=== PATIENT | male | born 1970 | race Caucasian/White ===

== ENCOUNTER 2016-10-02 08:14 | Emergency (ER) | payer MEDICAID, OTHER ==
[~2016-10-02] VITALS: Ht 193 cm; Wt 117.9 kg
[~2016-10-02 08:14] MED LIST: ACET500C PO; AFRI0.052; AFRI0.056; ALPR0.5T3 PO; BACITAB3 PO; BACL-67 PO; BENA25CA2 PO; BUSP10TA PO; BUSP15TA47 PO; CALC-190 PO; CALC1TAB17 PO; CALC500T36 PO; CARA1TAB2 PO; CARB1TAB20 PO; CELE-19 PO; CLAR10CA3 PO; CLON-412 PO; CREO12CA PO; DESYREL PD; DIPH25CA PO; FEXO180T58 PO; FOLI1TAB2 PO; LASI20TA PO; LEXA1TAB2 PO; MAGN400T PO; META800T82 PO; MORP15TA2 PO; MULTCAP PO; NICO14DI3 TD; NICO2GUM34 PO; NICO2GUM62 PO; OMEP40CA2 PO; OXAZ10CA PO; PANCCAP3 PO; PANCCAP4 PO; PRED5TA PO; PRIL40CA PO; ROBA500T PO; ROBA750T4 PO; SENO8.6T2 PO; SUCR1TA PO; TOPA25TA10 PO; TRAZ100T4 PO; TRAZ25TA PO; VALI5TAB PO; VIST25CA PO; VITA100066 PO; VITA100T2 PO; VITA100T60 PO; VITATAB11 PO; VITMTA PO; XANA0.5T PO; ZOFR4SOL PO
[2016-10-02] MEDS ORDERED: LORazepam 2 MG/ML VIAL (J2060) As Ordered ONE (08:48)
--- NOTE | 2016-10-02 09:05 | REP ---
Clinical: Chest pain . Comparison: 03/25/2016 . Findings: The mediastinum and cardiac silhouette are stable and within normal limits for portable technique. The lung correa are clear without acute consolidation, effusion, or pneumothorax. Skeletal structures are intact. Impression: Normal portable chest x-ray Signed by Keagan Campo MD 10/02/2016 08:57 A
[2016-10-02 09:27] LABS: INR 2.15
[2016-10-02] MEDS ORDERED: MORPHINE 2 MG/ML 1ML SYRINGE As Ordered ONE (09:30)
[2016-10-02] MEDS ORDERED: ONDANSETRON 4MG/2ML VIAL (J2405) As Ordered ONE (09:30)
[2016-10-02 09:38] LABS: MEAN CORPUSCULAR HEMOGLOBIN 40.2 pg (27.0-33.0); MEAN CORPUSCULAR HGB CONC 32.1 g/dl (32.0-36.5); MEAN CORPUSCULAR VOLUME 125.4 fl (80.0-96.0); PLATELET COUNT, AUTOMATED 173 k/mm3 (150-450); RED CELL DISTRIBUTION WIDTH 22.4 % (11.5-14.5); WHITE BLOOD COUNT 10.6 K/mm3 (4.0-10.0)
[2016-10-02 09:43] LABS: ALBUMIN 1.9 GM/DL (3.2-5.2); ALKALINE PHOSPHATASE 347 U/L (45-117); ALT/SGPT 175 U/L (12-78); AMYLASE 127 U/L (25-115); ANION GAP 16 MEQ/L (8-16); AST/SGOT 564 U/L (15-37); BLOOD UREA NITROGEN 13 MG/DL (7-18); CALCIUM LEVEL 7.6 MG/DL (8.5-10.1); CARBON DIOXIDE LEVEL 21 MEQ/L (21-32); CHLORIDE LEVEL 92 MEQ/L (98-107); CREATININE FOR GFR 0.91 MG/DL (0.70-1.30); GLOMERULAR FILTRATION RATE > 60.0 (>60); GLUCOSE, FASTING 85 MG/DL (70-105); POTASSIUM SERUM 4.2 MEQ/L (3.5-5.1); SODIUM LEVEL 129 MEQ/L (136-145)
[2016-10-02 09:53] LABS: BILIRUBIN,DIRECT 19.4 MG/DL (0.0-0.2)
[2016-10-02 09:55] LABS: BANDS 1 % (< 11); BASOPHILS 1 % (0-4)
[2016-10-02 09:56] LABS: ANISOCYTOSIS 3+
[2016-10-02 09:57] LABS: TARGET CELLS 1+
[2016-10-02 10:09] LABS: ALBUMIN/GLOBULIN RATIO 0.53 (1.00-1.93); TOTAL PROTEIN 5.5 GM/DL (6.4-8.2)
[2016-10-02 10:10] LABS: BILIRUBIN,TOTAL 24.6 MG/DL (0.2-1.0)
[2016-10-02 10:31] LABS: ERYTHROCYTE SEDIMENTATION RATE 52 mm/hr (0-15)
[2016-10-02] MEDS ORDERED: ISOVUE-370 76% 100ML VIAL (Q9967) As Ordered ONE (11:04)
--- NOTE | 2016-10-02 11:33 | REP ---
Clinical: Jaundice and elevated bilirubin levels. Technique: Real time mosher scale evaluation using curved array transducer. Findings: The liver is increased echogenicity with poor through transmission suggesting fatty infiltration and hepatocellular disease without focal hepatic lesion identified. The biliary system and pancreas are incompletely evaluated due to technical factors and poor through transmission. The gallbladder appears distended with layering sludge/gravel. Mild right upper quadrant and pericholecystic fluid is appreciated and nonspecific. No sonographic Waddell's sign was elicited. The right kidney is normal in reniform shape measuring 12.2 x 6.4 x 5.9 cm without hydronephrosis and includes 2.2 cm simple lower pole cortical cyst. Impression: Fatty infiltration to the liver without focal hepatic lesion identified. Distended gallbladder along with layering sludge/gravel as well as mild ascites and pericholecystic fluid. Biliary system is incompletely evaluated and the common bile duct is poorly identified due to technical factors and poor through transmission from fatty infiltration of the liver. Signed by Keagan Campo MD 10/02/2016 11:24 A
[2016-10-02] MEDS ORDERED: [UNRECOGNIZED DRUG - REMARK] (11:34)
--- NOTE | 2016-10-02 11:56 | REP ---
Clinical: Abdominal pain with jaundice. Technique: Axial contrast enhanced images from the lung bases to the pubic symphysis using 100 ml Isovue 370 intravenous contrast material with coronal and sagittal re-formations. Comparison: 03/25/2016, 02/28/2016. Findings: The liver is diffusely heterogeneous and demonstrates decreased parenchymal attenuation consistent with fatty infiltration and/or hepatocellular disease. No focal hepatic lesion is identified. A moderate amount of ascites noted throughout the abdomen and pelvis is appreciated along with what appears to be increased predominate upper abdominal vasculature suggesting underlying cirrhosis with varices and portosystemic shunting. The spleen is unremarkable. The enteric system demonstrates prior gastric bypass and left lower quadrant small bowel anastomosis. A mild colitis cannot be excluded and may be secondary to surrounding ascites as well as secondary to cirrhosis. There is no evidence for bowel obstruction and no free air to suggest perforation. The gallbladder is mildly distended. The pancreas is unremarkable. The bilateral adrenal glands and kidneys are relatively normal - 2 cm lower pole right renal cyst is unchanged. 2.5 cm fat containing periumbilical hernia is unchanged. Pelvis demonstrates normal bladder and prostate/seminal vesicles. No obvious adenopathy. Abdominal aorta without aneurysm. Surrounding musculoskeletal structures demonstrate age-related changes. Lung bases are clear. Impression: 1. Findings suggest fatty infiltration to the liver and/or hepatocellular disease including findings as described above which may reflect underlying cirrhosis. 2. Moderate ascites. 3. Mild colitis may be secondary to surrounding ascites and cirrhosis. 4. Chronic stable changes including 2 cm right renal cyst and 2.5 cm fat containing periumbilical hernia. Signed by Keagan Campo MD 10/02/2016 11:48 A
--- NOTE | 2016-10-02 13:16 | EDDOCDS ---
Physician Documentation [facility] Name: Rick Cleary Age: 45 yrs Sex: Male : 1970 Arrival Date: 10/02/2016 Time: 08:14 Bed 17 Private MD: Disposition: 10/02 12:31 Critical Care:. ml Disposition: 10/02/16 12:31 Transfer ordered to [facility]. 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 - Reason for transfer: Higher level of care. - Accepting physician is mahesh. - Condition is Unchanged. - Problem is new. - Symptoms are unchanged. Historical: - Allergies: SULFA (SULFONAMIDES); NSAIDS (Gastric Bypass); - Home Meds: 1. Benadryl 25 mg Oral cap 1 cap as needed 2. BuSpar Oral 10 mg three times a day 3. Lexapro 20 mg Oral tab 1 tab once daily 4. omeprazole 40 mg Oral cpDR 1 cap once daily 5. Pancrease 4,000-25,000- 20,000 unit Oral cpDR before meals - PMHx: alcohol abuse; Anxiety; Chronic Pain; Depression; Opioid abuse; Pancreatitis; - PSHx: Gastric Bypass; Tonsillectomy; Adenoidectomy; - Social history: Smoking status: Patient uses tobacco products, light tobacco smoker. No barriers to communication noted, The patient speaks fluent Pashto. - Family history: Not pertinent. - : The pt / caregiver states he / she is not on anticoagulants. Home medication list is obtained from the patient, [place] import data. - Exposure Risk Screening:: None identified. Vital Signs: 08:29 BP 135 / 74; Pulse 103; Resp 24; Temp 97.5(O); Pulse Ox 99% on R/A; Weight 117.93 kg / kcs 259.99 lbs (R); Height 6 ft. 4 in. (193.04 cm) (R); Pain 9/10; 08:51 Pulse 112 MON; Pulse Ox 99% ; jmk 08:52 BP 134 / 66 (auto/); jmk 09:37 BP 108 / 52 (auto/); jmk 09:37 Pulse 106 MON; Pulse Ox 99% ; jmk 09:53 BP 114 / 56 (auto/); jmk 09:53 Pulse 96 MON; Pulse Ox 99% ; jmk 11:58 BP 103 / 49 (auto/); jmk 11:58 Pulse 90 MON; Pulse Ox 100% ; jmk 13:10 BP 156 / 93; Pulse 102; Resp 18; Temp 98.9; Pulse Ox 98% on R/A; jmk 08:29 Body Mass Index 31.65 (117.93 kg, 193.04 cm) kcs MDM: 08:34 ECG WITH READING ER PHYS+CARDIAG ordered. EDMS 08:41 IV Saline Lock ordered. ml 08:41 -Blood Culture (Adults Only), peripheral from different site, or from device/port/PICC ml etc. if present ordered. 08:42 CBC with Diff Ordered. EDMS 08:42 MED Profile Ordered. EDMS 08:42 Liver Profile Ordered. EDMS 08:42 Lipase Ordered. EDMS 08:42 Amylase Ordered. EDMS 08:42 Lactic Acid ([place] tube on ice) Ordered. EDMS 08:42 PT/INR Ordered. EDMS 08:42 PTT Ordered. EDMS 08:42 Ammonia ([place] Tube on Ice, Not [place]) Ordered. EDMS 08:42 CIP Ordered. EDMS 08:42 Troponin Ordered. EDMS 08:42 -Blood Culture Ordered. EDMS 08:42 Chest, 1 View Ordered. EDMS 08:42 NS 0.9% 1000 ml IV at 100 mL/hr continuous ordered. ml 08:43 BED REQUEST+ADM ordered. EDMS 08:44 LORazepam 1 mg IVP once ordered. ml 08:44 Hepatitis Profile Ordered. EDMS 08:50 ERYTHROCYTE SEDIMENTATION RATE Ordered. EDMS 08:50 C REACTIVE PROTEIN QUANTITATIV Ordered. EDMS 08:55 BLOOD CULTURES Ordered. EDMS 09:06 -Blood Culture (Adults Only), peripheral from different site, or from device/port/PICC jmk etc. if present complete. 09:08 Financial registration complete. lg 09:29 Ondansetron 4 mg IVP once ordered. ml 09:29 morphine 2 mg IVP once ordered. ml 09:29 LORazepam 1 mg IVP once ordered. ml 09:40 DIFFERENTIAL NO CHARGE Ordered. EDMS 09:48 CBC with Diff Reviewed. ml 09:48 Lactic Acid ([place] tube on ice) Reviewed. ml 09:48 PT/INR Reviewed. ml 09:48 PTT Reviewed. ml 09:48 Ammonia ([place] Tube on Ice, Not [place]) Reviewed. ml 09:48 Chest, 1 View Reviewed. ml 10:07 CBC with Diff Reviewed. ml 10:07 PLATELET ESTIMATE Reviewed. ml 10:13 MED Profile Reviewed. ml 10:13 Liver Profile Reviewed. ml 10:13 Lipase Reviewed. ml 10:13 Amylase Reviewed. ml 10:13 C REACTIVE PROTEIN QUANTITATIV Reviewed. ml 10:13 CIP Reviewed. ml 10:13 Troponin Reviewed. ml 10:14 Misc. Nursing Order ordered. ml 10:15 CT ABD & PELVIS: IV Contrast Only Ordered. EDMS 10:15 US Gallbladder Ordered. EDMS 10:27 [facility] Payment Agreement was scanned into servtag and attached to record. lg 10:53 Consult PFS/PSA/[employer] Machine Operator ordered. ml 10:53 Consult PFS/PSA/[employer] Machine Operator: Patient's case requires discussion with on-call ml Psychiatrist ordered. 10:53 PSA/PFS to call Nursing Natural Resource Technician, to enter patient data on [place] Safe Act if patient ml involuntarily admitted or transferred for SI or HI ordered. 10:53 Confirm accurate psychiatric medication list and times of last dosage ordered. ml 10:53 Detain Pt Until Medically/PFS Cleared ordered. ml 10:54 Acetaminophen Level Ordered. EDMS 10:54 Drug Eval Toxicology ED Only Ordered. EDMS 10:54 Ethyl Alcohol (ethanol) Ordered. EDMS 10:54 Salicylate Level Ordered. EDMS 10:54 Thyroid Stimulating Hormone Ordered. EDMS 11:44 CBC with Diff Reviewed. ml 11:44 ERYTHROCYTE SEDIMENTATION RATE Reviewed. ml 11:44 Type & Screen Reviewed. ml 11:44 Hepatitis Profile Reviewed. ml 11:44 PLATELET ESTIMATE Reviewed. ml 11:56 US Gallbladder Reviewed. ml 12:26 Acetaminophen Level Reviewed. ml 12:26 Salicylate Level Reviewed. ml 12:26 Ethyl Alcohol (ethanol) Reviewed. ml 12:26 Thyroid Stimulating Hormone Reviewed. ml 12:26 CT ABD & PELVIS: IV Contrast Only Reviewed. ml 13:09 LORazepam 1 mg IVP once ordered. k 13:09 morphine 2 mg IVP once ordered. jose Administered Medications: 09:05 Drug: NS 0.9% 1000 ml Route: IV; Rate: 100 mL/hr; Site: left antecubital; jose 09:06 Drug: LORazepam 1 mg [lorazepam 2 mg/mL injection solution (0.5 mL)] Route: IVP; Site: [facility] left antecubital; 09:25 Follow up: Response: No significant change. [facility] 09:39 Drug: morphine 2 mg Route: IVP; Site: left antecubital; [facility] 10:15 Follow up: Response: Pain is decreased [facility] 09:39 Drug: LORazepam 1 mg [lorazepam 2 mg/mL injection solution (0.5 mL)] Route: IVP; Site: [facility] left antecubital; 09:40 Drug: Ondansetron 4 mg Route: IVP; Site: left antecubital; [facility] 13:10 Drug: LORazepam 1 mg [lorazepam 2 mg/mL injection solution (0.5 mL)] Route: IVP; Site: [facility] left antecubital; 13:10 Drug: morphine 2 mg Route: IVP; Site: left antecubital; [facility] Critical Care Time: 12:31 Critical care time: Bedside Care: 120 minutes, Consultation: 20 minutes, Family ml Intervention: 20 minutes. Total time: 160 minutes Signatures: Dispatcher [employer] EDMS Ulises Son MD MD ml Sleeman, Kacey, RN RN Valentin Best RN RN jmk Ganter, LoriLee, Reg Reg lg The chart was reviewed and I authenticate all verbal orders and agree with the evaluation and treatment provided.Corrections: (The following items were deleted from the chart) 08:50 08:43 C REACTIVE PROTEIN QUANTITATIV+LAB ordered. EDMS EDMS 08:50 08:43 ERYTHROCYTE SEDIMENTATION RATE+LAB ordered. EDMS EDMS 09:44 08:42 TYPE & SCREEN+BBK ordered. EDMS EDMS 10:56 10:54 COMPLETE BLOOD COUNT+LAB ordered. EDMS EDMS Attachments: 10:27 [facility] Payment Agreement lg [email or web address]
--- NOTE | 2016-10-02 13:16 | EDDOCDS ---
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 Says he has had nausea and vomiting too. Adult Sepsis Screening: The patient does not have new or worsening altered mentation. Patient has a respiratory rate of greater than or equal to 22 (1 point). Systolic blood pressure is greater than 100. Patient has a qSOFA score of 1- Negative Sepsis Screen. Suicide/Homicide risk assessment- the patient denies having any suicidal and/or homicidal ideations and does not present with any other emotional, behavioral or mental health complaints. Status: Patient is not a inbound customer service representative or dependent. Transition of care: patient was not received from another setting of care. 08:25 Acuity: AAKASH Level 2 kcs 08:25 Method Of Arrival: Wheelchair kcs 09:58 Red Flag criteria, patient assessed and taken directly to a bed. kcs Triage Assessment: 08:29 General: Appears ill, well developed, well nourished, well groomed, Behavior is kcs cooperative, pleasant. Pain: Location: abdomen Pain currently is 9 out of 10 on a pain scale. HIV screening NA for this visit Offered previously. The patient is triaged at the bedside. See Assessment in Nurses Notes section of ED record. Neurological: Level of Consciousness is awake, alert. Cardiovascular: Rhythm is sinus tachycardia. Respiratory: Airway is patent Respiratory effort is even, labored, Respiratory pattern is regular, symmetrical. GI: Abdomen is distended, Reports bloody stools. Derm: Skin is intact, is healthy with good turgor, Skin is dry, Skin is jaundiced. Historical: - Allergies: SULFA (SULFONAMIDES); NSAIDS (Gastric Bypass); - Home Meds: 1. Benadryl 25 mg Oral cap 1 cap as needed 2. BuSpar Oral 10 mg three times a day 3. Lexapro 20 mg Oral tab 1 tab once daily 4. omeprazole 40 mg Oral cpDR 1 cap once daily 5. Pancrease 4,000-25,000- 20,000 unit Oral cpDR before meals - PMHx: alcohol abuse; Anxiety; Chronic Pain; Depression; Opioid abuse; Pancreatitis; - PSHx: Gastric Bypass; Tonsillectomy; Adenoidectomy; - Social history: Smoking status: Patient uses tobacco products, light tobacco smoker. No barriers to communication noted, The patient speaks fluent Mongolian. - Family history: Not pertinent. - : The pt / caregiver states he / she is not on anticoagulants. Home medication list is obtained from the patient, in[employer] import data. - Exposure Risk Screening:: None identified. Screenin:14 Screening information is obtained from the patient. Fall risk: No risks identified. jmk Fall risk: No risks identified. Assistance ADL's: requires no assistance with activities of daily living. Abuse/DV Screen: The patient / caregiver reports he/she is: not in a situation that causes fear, pain or injury. Nutritional screening: No deficits noted. home support is adequate. 09:26 Advance Directives: Currently, there is no health care proxy. There is no active DNR jmk order. There is no living will. There is no Power of Label Paster. Advance directive information has not previously been placed in an [facility] medical record. Further advance directive information is declined. Assessment: 09:14 General: Appears in no apparent distress, appears generally ill. skin and sclera are jmk both yellow. without resp distress. chest CTA. occasional non congested cough noted. abd soft and non distended but with slight firmness to upper abdomen. Bowel sounds present x 4. diffusely tender with palpation. monitor is sr without ectopy. slightly tremulous. Indicates ETOH on daily basis, with last ingestion was last night.. Cardiovascular: Capillary refill < 3 seconds Clubbing of nail beds is absent Heart tones S1 S2 Edema is absent. Rhythm is regular. Respiratory: Airway is patent Respiratory effort is even, unlabored, Respiratory pattern is regular, Breath sounds are clear bilaterally. GI: Abdomen is flat, non- distended Bowel sounds present X 4 quads. Abd is tender to palpation in right upper quadrant, left upper quadrant, right lower quadrant and left lower quadrant. 09:25 General: Appears reports little change with lorazepam. still very shaky. 9/10 diffuse jmk abdominal pain.. 09:40 General: Appears again medicated for nausea, shakiness and pain.. jmk 10:14 General: Appears resting with eyes closed resp easy and regular when not stimulated. " jmk I have not slept in days". 12:02 General: Appears IV bolus is completed. reports little change in symptoms. steel feel jmk shaky, but no tremors noted. diffuse ABD discomfort is unchanged from arrival. monitor is sr. awaiting admission. 13:10 General: Appears states pain to abdomen is 8/10 and is again feeling shaky. medicated jmk as per order. Monitor is remaining as sr. Overall presentation unchanged from arrival. admitted.. Vital Signs: 08:29 BP 135 / 74; Pulse 103; Resp 24; Temp 97.5(O); Pulse Ox 99% on R/A; Weight 117.93 kg kcs (R); Height 6 ft. 4 in. (193.04 cm) (R); Pain 9/10; 08:51 Pulse 112 MON; Pulse Ox 99% ; jmk 08:52 BP 134 / 66 (auto/); jmk 09:37 BP 108 / 52 (auto/); jmk 09:37 Pulse 106 MON; Pulse Ox 99% ; jmk 09:53 BP 114 / 56 (auto/); jmk 09:53 Pulse 96 MON; Pulse Ox 99% ; jmk 11:58 BP 103 / 49 (auto/); jmk 11:58 Pulse 90 MON; Pulse Ox 100% ; jmk 13:10 BP 156 / 93; Pulse 102; Resp 18; Temp 98.9; Pulse Ox 98% on R/A; jmk 08:29 Body Mass Index 31.65 (117.93 kg, 193.04 cm) [facility] Vitals: 08:29 Log In Time: October 02, 2016 at 08:14. [facility] ED Course: 08:17 Patient visited by Oscar Salinas. mm15 08:17 Patient moved to Waiting mm15 08:24 Shari Martini,RN is Primary Nurse. kcs 08:24 Patient moved to 17 [facility] 08:27 Triage Initiated kcs 08:32 Ulises Son MD is Attending Physician. 08:32 Patient visited by Ulises Son MD. ml 09:06 Troponin Sent. jmk 09:06 CIP Sent. jmk 09:06 Hepatitis Profile Sent. jmk 09:06 ERYTHROCYTE SEDIMENTATION RATE Sent. jmk 09:06 C REACTIVE PROTEIN QUANTITATIV Sent. jmk 09:06 Ammonia (Little Green Tube on Ice, Not Pea Green) Sent. jmk 09:06 -Blood Culture Sent. jmk 09:06 PTT Sent. jmk 09:06 PT/INR Sent. jmk 09:06 Lactic Acid (Rivera tube on ice) Sent. jmk 09:06 Amylase Sent. jmk 09:06 Lipase Sent. jmk 09:07 Liver Profile Sent. jmk 09:07 MED Profile Sent. jmk 09:07 CBC with Diff Sent. jmk 09:14 The patient / caregiver is instructed regarding the plan of care and ED course. Cardiac jmk monitor on. Pulse ox on. 09:14 Inserted saline lock: 20 gauge in left antecubital area. jmk 09:28 Chest, 1 View Returned. EDMS 09:40 Patient visited by Valentin Morel,ARIANNA. jmk 09:42 Notified attending ED physician of Critical lab value. Dr Rivera notified of Lactic Acid kpj of 5.7. 09:51 DIFFERENTIAL NO CHARGE Sent. jmk 10:15 Patient visited by Valentin Morel,ARIANNA. jmk 10:27 [facility] Payment Agreement was scanned into [employer] and attached to record. lg 10:29 Patient moved to Ultrasound br3 10:55 Acetaminophen Level Sent. rs6 10:56 Ethyl Alcohol (ethanol) Sent. rs6 10:56 Salicylate Level Sent. rs6 10:56 Thyroid Stimulating Hormone Sent. rs6 11:12 Patient moved to 17 br3 11:45 US Gallbladder Returned. EDMS 12:09 Patient visited by Lyla Silva PCA. ar3 12:14 CT ABD & PELVIS: IV Contrast Only Returned. EDMS 13:10 No procedures done that require assistance. jose Administered Medications: 09:05 Drug: NS 0.9% 1000 ml Route: IV; Rate: 100 mL/hr; Site: left antecubital; jmk 09:06 Drug: LORazepam 1 mg [lorazepam 2 mg/mL injection solution (0.5 mL)] Route: IVP; Site: [facility] left antecubital; 09:25 Follow up: Response: No significant change. jmk 09:39 Drug: morphine 2 mg Route: IVP; Site: left antecubital; [facility] 10:15 Follow up: Response: Pain is decreased k 09:39 Drug: LORazepam 1 mg [lorazepam 2 mg/mL injection solution (0.5 mL)] Route: IVP; Site: [facility] left antecubital; 09:40 Drug: Ondansetron 4 mg Route: IVP; Site: left antecubital; [facility] 13:10 Drug: LORazepam 1 mg [lorazepam 2 mg/mL injection solution (0.5 mL)] Route: IVP; Site: [facility] left antecubital; 13:10 Drug: morphine 2 mg Route: IVP; Site: left antecubital; [facility] Intake: 13:10 IV: 1000.00ml (NS); Total: 1000.00ml. [facility] Order Results: Lab Order: CBC with Diff; SPEC'M 10/02/16 08:52 Test: WHITE BLOOD COUNT; Value: 10.6; Range: 4.0-10.0; Abnormal: Above high normal; Units: K/mm3; Status: F Test: RED BLOOD COUNT; Value: 2.23; Range: 4.30-6.10; Abnormal: Below low normal; Units: M/mm3; Status: F Test: HEMOGLOBIN; Value: 9.0; Range: 14.0-18.0; Abnormal: Below low normal; Units: g/dl; Status: F Test: HEMATOCRIT; Value: 27.9; Range: 42.0-52.0; Abnormal: Below low normal; Units: %; Status: F Test: MEAN CORPUSCULAR VOLUME; Value: 125.4; Range: 80.0-96.0; Abnormal: Above high normal; Units: fl; Status: F Test: MEAN CORPUSCULAR HEMOGLOBIN; Value: 40.2; Range: 27.0-33.0; Abnormal: Above high normal; Units: pg; Status: F Test: MEAN CORPUSCULAR HGB CONC; Value: 32.1; Range: 32.0-36.5; Units: g/dl; Status: F Test: RED CELL DISTRIBUTION WIDTH; Value: 22.4; Range: 11.5-14.5; Abnormal: Above high normal; Units: %; Status: F Test: PLATELET COUNT, AUTOMATED; Value: 173; Range: 150-450; Units: k/mm3; Status: F Test: NEUTROPHILS; Value: 74; Range: 35-75; Units: %; Status: F Test: BANDS; Value: 1; Range: < 11; Units: %; Status: F Test: LYMPHOCYTES; Value: 7; Range: 16-52; Abnormal: Below low normal; Units: %; Status: F Test: MONOCYTES; Value: 13; Range: 0-8; Abnormal: Above high normal; Units: %; Status: F Test: BASOPHILS; Value: 1; Range: 0-4; Units: %; Status: F Test: METAMYELOCYTES; Value: 1; Range: 0-0; Abnormal: Above high normal; Units: %; Status: F Test: MYELOCYTES; Value: 2; Range: 0-0; Abnormal: Above high normal; Units: %; Status: F Test: ATYPICAL LYMPH; Value: 1; Range: 0-5; Units: %; Status: F Test: ANISOCYTOSIS; Value: 3+; Status: F Test: MACROCYTOSIS; Value: 3+; Status: F Test: TARGET CELLS; Value: 1+; Status: F Lab Order: MED Profile; SPEC'M 10/02/16 08:52 Test: GLUCOSE, FASTING; Value: 85; Range: 70-105; Units: MG/DL; Status: F Test: BLOOD UREA NITROGEN; Value: 13; Range: 7-18; Units: MG/DL; Status: F Test: CREATININE FOR GFR; Value: 0.91; Range: 0.70-1.30; Units: MG/DL; Status: F Test: GLOMERULAR FILTRATION RATE; Value: > 60.0; Range: >60; Status: F Test: SODIUM LEVEL; Value: 129; Range: 136-145; Abnormal: Below low normal; Units: MEQ/L; Status: F Test: POTASSIUM SERUM; Value: 4.2; Range: 3.5-5.1; Units: MEQ/L; Status: F Test: CHLORIDE LEVEL; Value: 92; Range: 98-107; Abnormal: Below low normal; Units: MEQ/L; Status: F Test: CARBON DIOXIDE LEVEL; Value: 21; Range: 21-32; Units: MEQ/L; Status: F Test: ANION GAP; Value: 16; Range: 8-16; Units: MEQ/L; Status: F Test: CALCIUM LEVEL; Value: 7.6; Range: 8.5-10.1; Abnormal: Below low normal; Units: MG/DL; Status: F Test Note: ; Units are mL/min/1.73 m2 Chronic Kidney Disease Staging per NKF: Stage I & II GFR >=60 Normal to Mildly Decreased Stage III GFR 30-59 Moderately Decreased Stage IV GFR 15-29 Severely Decreased Stage V GFR <15 Very Little GFR Left ESRD GFR <15 on INCINERATOR OPERATOR Lab Order: Liver Profile; [facility] 08:52 Test: AST/SGOT; Value: 564; Range: 15-37; Abnormal: Above high normal; Units: U/L; Status: F Test: ALT/SGPT; Value: 175; Range: 12-78; Abnormal: Above high normal; Units: U/L; Status: F Test: ALKALINE PHOSPHATASE; Value: 347; Range: 45-117; Abnormal: Above high normal; Units: U/L; Status: F Test: BILIRUBIN,TOTAL; Value: 24.6; Range: 0.2-1.0; Abnormal: Above upper panic limits; Units: MG/DL; Status: F Test: BILIRUBIN,DIRECT; Value: 19.4; Range: 0.0-0.2; Abnormal: Above high normal; Units: MG/DL; Status: F Test: TOTAL PROTEIN; Value: 5.5; Range: 6.4-8.2; Abnormal: Below low normal; Units: GM/DL; Status: F Test: ALBUMIN; Value: 1.9; Range: 3.2-5.2; Abnormal: Below low normal; Units: GM/DL; Status: F Test: ALBUMIN/GLOBULIN RATIO; Value: 0.53; Range: 1.00-1.93; Abnormal: Below low normal; Status: F Lab Order: Lipase; [facility] 08:52 Test: LIPASE; Value: 1275; Range: 73-393; Abnormal: Above high normal; Units: U/L; Status: F Lab Order: Amylase; 10/02/16 08:52 Test: AMYLASE; Value: 127; Range: 25-115; Abnormal: Above high normal; Units: U/L; Status: F Lab Order: Lactic Acid (Rivera tube on ice); [facility] 08:52 Test: LACTIC ACID SEPSIS PROTOCOL; Value: 5.7; Range: 0.4-2.0; Abnormal: Above upper panic limits; Units: MMOL/L; Status: F Lab Order: PT/INR; [facility] 10/02/16 08:52 Test: PROTHROMBIN TIME; Value: 24.1; Range: 12.3-14.5; Abnormal: Above high normal; Units: SECONDS; Status: F Test: INR; Value: 2.15; Status: F Test Note: ; THERAPUTIC HUMAN INR VALUES INDICATIONS NORMAL RANGES PROPHYLAXIS/TREATMENT OF: VENOUS THROMBOSIS 2.0-3.0 PULMONARY EMBOLISM 2.0-3.0 PREVENTION OF SYSTEMIC EMBOLISM FROM: TISSUE HEART VALVES 2.0-3.0 ACUTE MYOCARDIAL INFARCTION 2.0-3.0 VALVULAR HEART DISEASE 2.0-3.0 ATRIAL FIBRILLATION 2.0-3.0 MECHANICAL VALVES(HIGH RISK) 2.5-3.5 RECURRENT MYOCARDIAL INFARCTION 2.5-3.5 Lab Order: PTT; 10/02/16 08:52 Test: PARTIAL THROMBOPLASTIN TIME; Value: 42.0; Range: 26.6-37.1; Abnormal: Above high normal; Units: SECONDS; Status: F Lab Order: Ammonia ([place] Tube on Ice, Not Pea Green); 10/02/16 08:52 Test: AMMONIA; Value: 39; Range: <32; Abnormal: Above high normal; Units: uMOL/L; Status: F Lab Order: CIP; 10/02/16 08:52 Test: CPK CREATINE PHOSPHOKINASE; Value: 99; Range: 39-308; Units: U/L; Status: F Test: CK-MB VALUE MASS; Value: 2.5; Range: 0.0-3.6; Units: NG/ML; Status: F Test: MB/CK RELATIVE INDEX; Value: 2.52; Range: < OR =4; Status: F Test Note: ; DIAGNOSIS CRITERIA MMB ng/ml Relative Index (RI) NON-AMI < or = 5 N/A RIVERA ZONE > 5 < or = 4 AMI > 5 > 4 Lab Order: Troponin; 10/02/16 08:52 Test: TROPONIN I; Value: < 0.02; Range: < 0.10; Units: NG/ML; Status: F Test Note: ; Troponin I Reference Interval for Siemens Bixby LOCI: 99th Percentile= 0.00-0.045 ng/ml Risk Stratification: <= 0.10 ng/ml Decreased Risk for Adverse Clinical Events. 0.10-1.50 ng/ml Increased Risk for Adverse Clinical Events. Evaluation of additional criterion and/or repeat testing in 2-6 hours is suggested to rule out myocardial damage. >= 1.50 ng/ml Indicative of Myocardial Injury. Lab Order: Type & Screen; 10/02/16 08:52 Test: BLOOD TYPE; Value: OP; Status: F Test: AB SCREEN GEL MANUAL; Value: NEGATIVE; Status: F Lab Order: Hepatitis Profile; 10/02/1652 Test: HEPATITIS C VIRUS MATT INDEX; Value: 0.1; Range: <0.8; Units: INDEX; Status: F Test: HEPATITIS B SURFACE ANTIGEN; Value: NEGATIVE; Range: NEGATIVE; Status: F Test: HEPATITIS B CORE ANTIBODY IGM; Value: NEGATIVE; Range: NEGATIVE; Status: F Test: HEPATITIS A ANTIBODY IGM; Value: NEGATIVE; Range: NEGATIVE; Status: F Test Note: ; Negative Not infected with HCV, unless recent infection is suspected or other evidence exists to indicate HCV infection. Lab Order: ERYTHROCYTE SEDIMENTATION RATE; 10/02/16 08:52 Test: ERYTHROCYTE SEDIMENTATION RATE; Value: 52; Range: 0-15; Abnormal: Above high normal; Units: mm/hr; Status: F Lab Order: C REACTIVE PROTEIN QUANTITATIV; 10/02/16 08:52 Test: C REACTIVE PROTEIN QUANTITATIV; Value: 3.51; Range: 0.00-0.30; Abnormal: Above high normal; Units: MG/DL; Status: F Lab Order: PLATELET ESTIMATE; 10/02/16 08:52 Test: PLATELET ESTIMATE; Value: NORMAL; Range: NORMAL; Status: F Lab Order: Acetaminophen Level; 10/02/16 08:52 Test: ACETAMINOPHEN LEVEL; Value: < 2.0; Range: 10.0-30.0; Abnormal: Below low normal; Units: UG/ML; Status: F Lab Order: Ethyl Alcohol (ethanol); SPEC'M 10/02/16 08:52 Test: ETHYL ALCOHOL (ETHANOL); Value: 0.003; Range: 0.000-0.010; Units: %; Status: F Lab Order: Salicylate Level; SPEC'M 10/02/16 08:52 Test: SALICYLATE LEVEL; Value: < 1.7; Range: 5.0-30.0; Abnormal: Below low normal; Units: MG/DL; Status: F Lab Order: Thyroid Stimulating Hormone; SPEC'M 10/02/16 08:52 Test: THYROID STIMULATING HORMONE; Value: 1.980; Range: 0.358-3.740; Units: uIU/ML; Status: F Radiology Order: Chest, 1 View Test: Chest, 1 View REASON FOR EXAMINATION: Chest Pain; Clinical: Chest pain .; ; Comparison: 03/25/2016 .; ; Findings:; The mediastinum and cardiac silhouette are stable and within normal limits for; portable technique. The lung correa are clear without acute consolidation,; effusion, or pneumothorax. Skeletal structures are intact.; ; Impression:; Normal portable chest x-ray; ; ; Signed by; Keagan Campo MD 10/02/2016 08:57 A; Radiology Order: CT ABD & PELVIS: IV Contrast Only Test: CT ABD & PELVIS: IV Contrast Only REASON FOR EXAMINATION: abdl pain; Clinical: Abdominal pain with jaundice.; ; Technique: Axial contrast enhanced images from the lung bases to the pubic; symphysis using 100 ml Isovue 370 intravenous contrast material with coronal and; sagittal re-formations.; ; Comparison: 03/25/2016, 02/28/2016.; ; Findings:; The liver is diffusely heterogeneous and demonstrates decreased parenchymal; attenuation consistent with fatty infiltration and/or hepatocellular disease. No; focal hepatic lesion is identified. A moderate amount of ascites noted; throughout the abdomen and pelvis is appreciated along with what appears to be; increased predominate upper abdominal vasculature suggesting underlying cirrhosis; with varices and portosystemic shunting. The spleen is unremarkable. The; enteric system demonstrates prior gastric bypass and left lower quadrant small; bowel anastomosis. A mild colitis cannot be excluded and may be secondary to; surrounding ascites as well as secondary to cirrhosis. There is no evidence for; bowel obstruction and no free air to suggest perforation. The gallbladder is; mildly distended. The pancreas is unremarkable. The bilateral adrenal glands; and kidneys are relatively normal - 2 cm lower pole right renal cyst is; unchanged. 2.5 cm fat containing periumbilical hernia is unchanged. Pelvis; demonstrates normal bladder and prostate/seminal vesicles. No obvious; adenopathy. Abdominal aorta without aneurysm. Surrounding musculoskeletal; structures demonstrate age-related changes. Lung bases are clear.; ; Impression:; 1. Findings suggest fatty infiltration to the liver and/or hepatocellular; disease including findings as described above which may reflect underlying; cirrhosis.; 2. Moderate ascites.; 3. Mild colitis may be secondary to surrounding ascites and cirrhosis.; 4. Chronic stable changes including 2 cm right renal cyst and 2.5 cm fat; containing periumbilical hernia.; ; ; Signed by; Keagan Campo MD 10/02/2016 11:48 A; Radiology Order: US Gallbladder Test: US Gallbladder REASON FOR EXAMINATION: elev bili, jaundice; Clinical: Jaundice and elevated bilirubin levels.; ; Technique: Real time rivera scale evaluation using curved array transducer.; ; Findings:; The liver is increased echogenicity with poor through transmission suggesting; fatty infiltration and hepatocellular disease without focal hepatic lesion; identified. The biliary system and pancreas are incompletely evaluated due to; technical factors and poor through transmission. The gallbladder appears; distended with layering sludge/gravel. Mild right upper quadrant and; pericholecystic fluid is appreciated and nonspecific. No sonographic Waddell's; sign was elicited. The right kidney is normal in reniform shape measuring 12.2 x; 6.4 x 5.9 cm without hydronephrosis and includes 2.2 cm simple lower pole; cortical cyst.; ; Impression:; Fatty infiltration to the liver without focal hepatic lesion identified.; Distended gallbladder along with layering sludge/gravel as well as mild ascites; and pericholecystic fluid. Biliary system is incompletely evaluated and the; common bile duct is poorly identified due to technical factors and poor through; transmission from fatty infiltration of the liver.; ; ; ; ; Signed by; Keagan Campo MD 10/02/2016 11:24 A; Outcome: 12:31 ER care complete, transfer ordered by Provider. ml 13:10 Discharge Assessment: Patient awake, alert and oriented x 3. No cognitive and/or jmk functional deficits noted. Patient verbalized understanding of disposition instructions. patient administered narcotics - yes. Patient was admitted to the hospital or transferred to another facility. The following High Risk Discharge criteria are identified: Yes, Transferred by EMS ground [facility] ambulance farideh wilson, paramedics. Condition: unchanged. CT Study completed. Ultrasound Study completed. Admission hand-off: Report called to arianna mcwilliams. Property :Personal belongings accompany Pt. 13:15 Patient left the ED. jose Signatures: Dispatcher [employer] EDMS Jey-Ulises Rivera MD MD ml Sleeman, Kacey, RN RN Sarai Kapadia RN RN Valentin Andrews,RN RN Dusty Álvarez, Timmy Reg lg Tina Merino br3 Lyla Silva, ACCOUNTING SOFTWARE SPECIALIST ACCOUNTING SOFTWARE SPECIALIST ar3 Oscar Salinas mm15 Jojo Wynn, ACCOUNTING SOFTWARE SPECIALIST ACCOUNTING SOFTWARE SPECIALIST rs6 Corrections: (The following items were deleted from the chart) 08:33 08:25 Presenting complaint: Patient states: he has had abdominal pain for a few days - kcs also bloody stools - short of breath and pain in upper chest (both started this am). kcs 09:27 09:14 General: Appears in no apparent distress, appears generally ill. skin and sclera jmk are both yell. without resp distress. chest CTA. occasional non congested cough noted. abd soft and non distended but with slight firmness to upper abdomen. Bowel sounds present x 4. diffusely tender with palpation. monitor is sr without ectopy. slightly tremulous. Indicates ETOH on daily basis, with last ingestion was last night.. jose 09:44 09:06 TYPE & SCREEN+BBK sent. [facility] EDGA MTDD
--- NOTE | 2016-10-03 07:45 | ECGEPIP ---
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
--- NOTE | 2016-10-04 14:17 | EDDOCDS ---
Physician Documentation [facility] Name: Rick Cleary Age: 45 yrs Sex: Male : 1970 Arrival Date: 10/02/2016 Time: 08:14 Bed 17 Private MD: Disposition: 10/02 12:31 Critical Care:. ml Disposition: 10/02/16 12:[address] [facility]. 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 - Reason for transfer: Higher level of care. - Accepting physician is mahesh. - Condition is Unchanged. - Problem is new. - Symptoms are unchanged. Historical: - Allergies: SULFA (SULFONAMIDES); NSAIDS (Gastric Bypass); - Home Meds: 1. Benadryl 25 mg Oral cap 1 cap as needed 2. BuSpar Oral 10 mg three times a day 3. Lexapro 20 mg Oral tab 1 tab once daily 4. omeprazole 40 mg Oral cpDR 1 cap once daily 5. Pancrease 4,000-25,000- 20,000 unit Oral cpDR before meals - PMHx: alcohol abuse; Anxiety; Chronic Pain; Depression; Opioid abuse; Pancreatitis; - PSHx: Gastric Bypass; Tonsillectomy; Adenoidectomy; - Social history: Smoking status: Patient uses tobacco products, light tobacco smoker. No barriers to communication noted, The patient speaks fluent Czech. - Family history: Not pertinent. - : The pt / caregiver states he / she is not on anticoagulants. Home medication list is obtained from the patient, [employer] import data. - Exposure Risk Screening:: None identified. Vital Signs: 08:29 BP 135 / 74; Pulse 103; Resp 24; Temp 97.5(O); Pulse Ox 99% on R/A; Weight 117.93 kg / kcs 259.99 lbs (R); Height 6 ft. 4 in. (193.04 cm) (R); Pain 9/10; 08:51 Pulse 112 MON; Pulse Ox 99% ; jmk 08:52 BP 134 / 66 (auto/); jmk 09:37 BP 108 / 52 (auto/); jmk 09:37 Pulse 106 MON; Pulse Ox 99% ; jmk 09:53 BP 114 / 56 (auto/); jmk 09:53 Pulse 96 MON; Pulse Ox 99% ; jmk 11:58 BP 103 / 49 (auto/); jmk 11:58 Pulse 90 MON; Pulse Ox 100% ; jmk 13:10 BP 156 / 93; Pulse 102; Resp 18; Temp 98.9; Pulse Ox 98% on R/A; jmk 08:29 Body Mass Index 31.65 (117.93 kg, 193.04 cm) kcs MDM: 08:34 ECG WITH READING ER PHYS+CARDIAG ordered. EDMS 08:41 IV Saline Lock ordered. ml 08:41 -Blood Culture (Adults Only), peripheral from different site, or from device/port/PICC ml etc. if present ordered. 08:42 CBC with Diff Ordered. EDMS 08:42 MED Profile Ordered. EDMS 08:42 Liver Profile Ordered. EDMS 08:42 Lipase Ordered. EDMS 08:42 Amylase Ordered. EDMS 08:42 Lactic Acid (Rivera tube on ice) Ordered. EDMS 08:42 PT/INR Ordered. EDMS 08:42 PTT Ordered. EDMS 08:42 Ammonia (Little Green Tube on Ice, Not Pea Green) Ordered. EDMS 08:42 CIP Ordered. EDMS 08:42 Troponin Ordered. EDMS 08:42 -Blood Culture Ordered. EDMS 08:42 Chest, 1 View Ordered. EDMS 08:42 NS 0.9% 1000 ml IV at 100 mL/hr continuous ordered. ml 08:43 BED REQUEST+ADM ordered. EDMS 08:44 LORazepam 1 mg IVP once ordered. ml 08:44 Hepatitis Profile Ordered. EDMS 08:50 ERYTHROCYTE SEDIMENTATION RATE Ordered. EDMS 08:50 C REACTIVE PROTEIN QUANTITATIV Ordered. EDMS 08:55 BLOOD CULTURES Ordered. EDMS 09:06 -Blood Culture (Adults Only), peripheral from different site, or from device/port/PICC jmk etc. if present complete. 09:08 Financial registration complete. lg 09:29 Ondansetron 4 mg IVP once ordered. ml 09:29 morphine 2 mg IVP once ordered. ml 09:29 LORazepam 1 mg IVP once ordered. ml 09:40 DIFFERENTIAL NO CHARGE Ordered. EDMS 09:48 CBC with Diff Reviewed. ml 09:48 Lactic Acid (Rivera tube on ice) Reviewed. ml 09:48 PT/INR Reviewed. ml 09:48 PTT Reviewed. ml 09:48 Ammonia (Little Green Tube on Ice, Not Pea Green) Reviewed. ml 09:48 Chest, 1 View Reviewed. ml 10:07 CBC with Diff Reviewed. ml 10:07 PLATELET ESTIMATE Reviewed. ml 10:13 MED Profile Reviewed. ml 10:13 Liver Profile Reviewed. ml 10:13 Lipase Reviewed. ml 10:13 Amylase Reviewed. ml 10:13 C REACTIVE PROTEIN QUANTITATIV Reviewed. ml 10:13 CIP Reviewed. ml 10:13 Troponin Reviewed. ml 10:14 Misc. Nursing Order ordered. ml 10:15 CT ABD & PELVIS: IV Contrast Only Ordered. EDMS 10:15 US Gallbladder Ordered. EDMS 10:27 [place] Payment Agreement was scanned into [employer] and attached to record. lg 10:53 Consult PFS/PSA/Morale Officer ordered. ml 10:53 Consult PFS/PSA/Morale Officer: Patient's case requires discussion with on-call ml Psychiatrist ordered. 10:53 PSA/PFS to call Nursing Psychologist Counseling, to enter patient data on [place] Safe Act if patient ml involuntarily admitted or transferred for SI or HI ordered. 10:53 Confirm accurate psychiatric medication list and times of last dosage ordered. ml 10:53 Detain Pt Until Medically/PFS Cleared ordered. ml 10:54 Acetaminophen Level Ordered. EDMS 10:54 Drug Eval Toxicology ED Only Ordered. EDMS 10:54 Ethyl Alcohol (ethanol) Ordered. EDMS 10:54 Salicylate Level Ordered. EDMS 10:54 Thyroid Stimulating Hormone Ordered. EDMS 11:44 CBC with Diff Reviewed. ml 11:44 ERYTHROCYTE SEDIMENTATION RATE Reviewed. ml 11:44 Type & Screen Reviewed. ml 11:44 Hepatitis Profile Reviewed. ml 11:44 PLATELET ESTIMATE Reviewed. ml 11:56 US Gallbladder Reviewed. ml 12:26 Acetaminophen Level Reviewed. ml 12:26 Salicylate Level Reviewed. ml 12:26 Ethyl Alcohol (ethanol) Reviewed. ml 12:26 Thyroid Stimulating Hormone Reviewed. ml 12:26 CT ABD & PELVIS: IV Contrast Only Reviewed. ml 13:09 LORazepam 1 mg IVP once ordered. jmk 13:09 morphine 2 mg IVP once ordered. jose 10/03 14:00 T-Sheet-- Draft Copy was scanned into [employer] and attached to record. gb 14:00 ECG/EKG was scanned into [employer] and attached to record. gb 14:01 Radiology Report was scanned into [employer] and attached to record. gb Administered Medications: 10/02 09:05 Drug: NS 0.9% 1000 ml Route: IV; Rate: 100 mL/hr; Site: left antecubital; [facility] 09:06 Drug: LORazepam 1 mg [lorazepam 2 mg/mL injection solution (0.5 mL)] Route: IVP; Site: [facility] left antecubital; 09:25 Follow up: Response: No significant change. [facility] 09:39 Drug: morphine 2 mg Route: IVP; Site: left antecubital; [facility] 10:15 Follow up: Response: Pain is decreased [facility] 09:39 Drug: LORazepam 1 mg [lorazepam 2 mg/mL injection solution (0.5 mL)] Route: IVP; Site: [facility] left antecubital; 09:40 Drug: Ondansetron 4 mg Route: IVP; Site: left antecubital; [facility] 13:10 Drug: LORazepam 1 mg [lorazepam 2 mg/mL injection solution (0.5 mL)] Route: IVP; Site: [facility] left antecubital; 13:10 Drug: morphine 2 mg Route: IVP; Site: left antecubital; [facility] Critical Care Time: 12:31 Critical care time: Bedside Care: 120 minutes, Consultation: 20 minutes, Family ml Intervention: 20 minutes. Total time: 160 minutes Signatures: Dispatcher [employer] EDUlises Roldan MD MD ml Sleeman, Kacey RN Valentin Erickson RN RN jmk Barnhardt, Gloria, Reg Reg Dusty Jessica, Reg Reg lg The chart was reviewed and I authenticate all verbal orders and agree with the evaluation and treatment provided.Corrections: (The following items were deleted from the chart) 08:50 08:43 C REACTIVE PROTEIN QUANTITATIV+LAB ordered. EDMS EDMS 08:50 08:43 ERYTHROCYTE SEDIMENTATION RATE+LAB ordered. EDMS EDMS 09:44 08:42 TYPE & SCREEN+BBK ordered. EDMS EDMS 10:56 10:54 COMPLETE BLOOD COUNT+LAB ordered. EDMS EDMS Attachments: 10:27 [facility] Payment Agreement 10/03 14:00 T-Sheet-- Draft Copy 14:00 ECG/EKG Chart Complete MTDD
--- NOTE | 2016-10-04 14:17 | EDDOCDS ---
Physician Documentation [facility] Name: Rick Cleary Age: 45 yrs Sex: Male : 1970 Arrival Date: 10/02/2016 Time: 08:14 Bed 17 Private MD: Disposition: 10/02 12:31 Critical Care:. ml Disposition: 10/02/16 12:31 Transfer ordered to [facility]. 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 - Reason for transfer: Higher level of care. - Accepting physician is mahesh. - Condition is Unchanged. - Problem is new. - Symptoms are unchanged. Historical: - Allergies: SULFA (SULFONAMIDES); NSAIDS (Gastric Bypass); - Home Meds: 1. Benadryl 25 mg Oral cap 1 cap as needed 2. BuSpar Oral 10 mg three times a day 3. Lexapro 20 mg Oral tab 1 tab once daily 4. omeprazole 40 mg Oral cpDR 1 cap once daily 5. Pancrease 4,000-25,000- 20,000 unit Oral cpDR before meals - PMHx: alcohol abuse; Anxiety; Chronic Pain; Depression; Opioid abuse; Pancreatitis; - PSHx: Gastric Bypass; Tonsillectomy; Adenoidectomy; - Social history: Smoking status: Patient uses tobacco products, light tobacco smoker. No barriers to communication noted, The patient speaks fluent Spanish. - Family history: Not pertinent. - : The pt / caregiver states he / she is not on anticoagulants. Home medication list is obtained from the patient, [employer] import data. - Exposure Risk Screening:: None identified. Vital Signs: 08:29 BP 135 / 74; Pulse 103; Resp 24; Temp 97.5(O); Pulse Ox 99% on R/A; Weight 117.93 kg / kcs 259.99 lbs (R); Height 6 ft. 4 in. (193.04 cm) (R); Pain 9/10; 08:51 Pulse 112 MON; Pulse Ox 99% ; jmk 08:52 BP 134 / 66 (auto/); jmk 09:37 BP 108 / 52 (auto/); jmk 09:37 Pulse 106 MON; Pulse Ox 99% ; jmk 09:53 BP 114 / 56 (auto/); jmk 09:53 Pulse 96 MON; Pulse Ox 99% ; jmk 11:58 BP 103 / 49 (auto/); jmk 11:58 Pulse 90 MON; Pulse Ox 100% ; jmk 13:10 BP 156 / 93; Pulse 102; Resp 18; Temp 98.9; Pulse Ox 98% on R/A; jmk 08:29 Body Mass Index 31.65 (117.93 kg, 193.04 cm) kcs MDM: 08:34 ECG WITH READING ER PHYS+CARDIAG ordered. EDMS 08:41 IV Saline Lock ordered. ml 08:41 -Blood Culture (Adults Only), peripheral from different site, or from device/port/PICC ml etc. if present ordered. 08:42 CBC with Diff Ordered. EDMS 08:42 MED Profile Ordered. EDMS 08:42 Liver Profile Ordered. EDMS 08:42 Lipase Ordered. EDMS 08:42 Amylase Ordered. EDMS 08:42 Lactic Acid (Rivera tube on ice) Ordered. EDMS 08:42 PT/INR Ordered. EDMS 08:42 PTT Ordered. EDMS 08:42 Ammonia (Little Green Tube on Ice, Not Pea Green) Ordered. EDMS 08:42 CIP Ordered. EDMS 08:42 Troponin Ordered. EDMS 08:42 -Blood Culture Ordered. EDMS 08:42 Chest, 1 View Ordered. EDMS 08:42 NS 0.9% 1000 ml IV at 100 mL/hr continuous ordered. ml 08:43 BED REQUEST+ADM ordered. EDMS 08:44 LORazepam 1 mg IVP once ordered. ml 08:44 Hepatitis Profile Ordered. EDMS 08:50 ERYTHROCYTE SEDIMENTATION RATE Ordered. EDMS 08:50 C REACTIVE PROTEIN QUANTITATIV Ordered. EDMS 08:55 BLOOD CULTURES Ordered. EDMS 09:06 -Blood Culture (Adults Only), peripheral from different site, or from device/port/PICC jmk etc. if present complete. 09:08 Financial registration complete. lg 09:29 Ondansetron 4 mg IVP once ordered. ml 09:29 morphine 2 mg IVP once ordered. ml 09:29 LORazepam 1 mg IVP once ordered. ml 09:40 DIFFERENTIAL NO CHARGE Ordered. EDMS 09:48 CBC with Diff Reviewed. ml 09:48 Lactic Acid (Rivera tube on ice) Reviewed. ml 09:48 PT/INR Reviewed. ml 09:48 PTT Reviewed. ml 09:48 Ammonia (Little Green Tube on Ice, Not Pea Green) Reviewed. ml 09:48 Chest, 1 View Reviewed. ml 10:07 CBC with Diff Reviewed. ml 10:07 PLATELET ESTIMATE Reviewed. ml 10:13 MED Profile Reviewed. ml 10:13 Liver Profile Reviewed. ml 10:13 Lipase Reviewed. ml 10:13 Amylase Reviewed. ml 10:13 C REACTIVE PROTEIN QUANTITATIV Reviewed. ml 10:13 CIP Reviewed. ml 10:13 Troponin Reviewed. ml 10:14 Misc. Nursing Order ordered. ml 10:15 CT ABD & PELVIS: IV Contrast Only Ordered. EDMS 10:15 US Gallbladder Ordered. EDMS 10:27 [place] Payment Agreement was scanned into [email or web address] and attached to record. lg 10:53 Consult PFS/PSA/Assistant Art Director ordered. ml 10:53 Consult PFS/PSA/Assistant Art Director: Patient's case requires discussion with on-call ml Psychiatrist ordered. 10:53 PSA/PFS to call Nursing Delivery Engineer, to enter patient data on [place] Safe [place] if patient ml involuntarily admitted or transferred for SI or HI ordered. 10:53 Confirm accurate psychiatric medication list and times of last dosage ordered. ml 10:53 Detain Pt Until Medically/PFS Cleared ordered. ml 10:54 Acetaminophen Level Ordered. EDMS 10:54 Drug Eval Toxicology ED Only Ordered. EDMS 10:54 Ethyl Alcohol (ethanol) Ordered. EDMS 10:54 Salicylate Level Ordered. EDMS 10:54 Thyroid Stimulating Hormone Ordered. EDMS 11:44 CBC with Diff Reviewed. ml 11:44 ERYTHROCYTE SEDIMENTATION RATE Reviewed. ml 11:44 Type & Screen Reviewed. ml 11:44 Hepatitis Profile Reviewed. ml 11:44 PLATELET ESTIMATE Reviewed. ml 11:56 US Gallbladder Reviewed. ml 12:26 Acetaminophen Level Reviewed. ml 12:26 Salicylate Level Reviewed. ml 12:26 Ethyl Alcohol (ethanol) Reviewed. ml 12:26 Thyroid Stimulating Hormone Reviewed. ml 12:26 CT ABD & PELVIS: IV Contrast Only Reviewed. ml 13:09 LORazepam 1 mg IVP once ordered. jmk 13:09 morphine 2 mg IVP once ordered. jose 10/03 14:00 T-Sheet-- Draft Copy was scanned into [email or web address] and attached to record. gb 14:00 ECG/EKG was scanned into [email or web address] and attached to record. gb 14:01 Radiology Report was scanned into [employer] and attached to record. gb Administered Medications: 10/02 09:05 Drug: NS 0.9% 1000 ml Route: IV; Rate: 100 mL/hr; Site: left antecubital; [facility] 09:06 Drug: LORazepam 1 mg [lorazepam 2 mg/mL injection solution (0.5 mL)] Route: IVP; Site: [facility] left antecubital; 09:25 Follow up: Response: No significant change. [facility] 09:39 Drug: morphine 2 mg Route: IVP; Site: left antecubital; [facility] 10:15 Follow up: Response: Pain is decreased [facility] 09:39 Drug: LORazepam 1 mg [lorazepam 2 mg/mL injection solution (0.5 mL)] Route: IVP; Site: [facility] left antecubital; 09:40 Drug: Ondansetron 4 mg Route: IVP; Site: left antecubital; [facility] 13:10 Drug: LORazepam 1 mg [lorazepam 2 mg/mL injection solution (0.5 mL)] Route: IVP; Site: [facility] left antecubital; 13:10 Drug: morphine 2 mg Route: IVP; Site: left antecubital; [facility] Critical Care Time: 12:31 Critical care time: Bedside Care: 120 minutes, Consultation: 20 minutes, Family ml Intervention: 20 minutes. Total time: 160 minutes Signatures: Dispatcher [employer] EDUlises Roldan MD MD ml Sleeman, Kacey RN Valentin Erickson RN RN jmk Barnhardt, Gloria, Reg Reg Dusty Jessica, Reg Reg lg The chart was reviewed and I authenticate all verbal orders and agree with the evaluation and treatment provided.Corrections: (The following items were deleted from the chart) 08:50 08:43 C REACTIVE PROTEIN QUANTITATIV+LAB ordered. EDMS EDMS 08:50 08:43 ERYTHROCYTE SEDIMENTATION RATE+LAB ordered. EDMS EDMS 09:44 08:42 TYPE & SCREEN+BBK ordered. EDMS EDMS 10:56 10:54 COMPLETE BLOOD COUNT+LAB ordered. EDMS EDMS Attachments: 10:27 [facility] Payment Agreement 10/03 14:00 T-Sheet-- Draft Copy 14:00 ECG/EKG Chart Complete MTDD
--- NOTE | 2016-10-04 14:18 | EDDOCDS ---
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 Says he has had nausea and vomiting too. Adult Sepsis Screening: The patient does not have new or worsening altered mentation. Patient has a respiratory rate of greater than or equal to 22 (1 point). Systolic blood pressure is greater than 100. Patient has a qSOFA score of 1- Negative Sepsis Screen. Suicide/Homicide risk assessment- the patient denies having any suicidal and/or homicidal ideations and does not present with any other emotional, behavioral or mental health complaints. 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 Transition of care: patient was not received from another setting of care. 08:25 Acuity: AAKASH Level 2 kcs 08:25 Method Of Arrival: Wheelchair kcs 09:58 Red Flag criteria, patient assessed and taken directly to a bed. kcs Triage Assessment: 08:29 General: Appears ill, well developed, well nourished, well groomed, Behavior is kcs cooperative, pleasant. Pain: Location: abdomen Pain currently is 9 out of 10 on a pain scale. HIV screening NA for this visit Offered previously. The patient is triaged at the bedside. See Assessment in Nurses Notes section of ED record. Neurological: Level of Consciousness is awake, alert. Cardiovascular: Rhythm is sinus tachycardia. Respiratory: Airway is patent Respiratory effort is even, labored, Respiratory pattern is regular, symmetrical. GI: Abdomen is distended, Reports bloody stools. Derm: Skin is intact, is healthy with good turgor, Skin is dry, Skin is jaundiced. Historical: - Allergies: SULFA (SULFONAMIDES); NSAIDS (Gastric Bypass); - Home Meds: 1. Benadryl 25 mg Oral cap 1 cap as needed 2. BuSpar Oral 10 mg three times a day 3. Lexapro 20 mg Oral tab 1 tab once daily 4. omeprazole 40 mg Oral cpDR 1 cap once daily 5. Pancrease 4,000-25,000- 20,000 unit Oral cpDR before meals - PMHx: alcohol abuse; Anxiety; Chronic Pain; Depression; Opioid abuse; Pancreatitis; - PSHx: Gastric Bypass; Tonsillectomy; Adenoidectomy; - Social history: Smoking status: Patient uses tobacco products, light tobacco smoker. No barriers to communication noted, The patient speaks fluent [place]. - Family history: Not pertinent. - : The pt / caregiver states he / she is not on anticoagulants. Home medication list is obtained from the patient, [employer] import data. - Exposure Risk Screening:: None identified. Screenin:14 Screening information is obtained from the patient. Fall risk: No risks identified. jmk Fall risk: No risks identified. Assistance ADL's: requires no assistance with activities of daily living. Abuse/DV Screen: The patient / caregiver reports he/she is: not in a situation that causes fear, pain or injury. Nutritional screening: No deficits noted. home support is adequate. 09:26 Advance Directives: Currently, there is no health care proxy. There is no active DNR jmk order. There is no living will. 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 Advance directive information has not previously been placed in an [facility] medical record. Further advance directive information is declined. Assessment: 09:14 General: Appears in no apparent distress, appears generally ill. skin and sclera are jmk both yellow. without resp distress. chest CTA. occasional non congested cough noted. abd soft and non distended but with slight firmness to upper abdomen. Bowel sounds present x 4. diffusely tender with palpation. monitor is sr without ectopy. slightly tremulous. Indicates ETOH on daily basis, with last ingestion was last night.. Cardiovascular: Capillary refill < 3 seconds Clubbing of nail beds is absent Heart tones S1 S2 Edema is absent. Rhythm is regular. Respiratory: Airway is patent Respiratory effort is even, unlabored, Respiratory pattern is regular, Breath sounds are clear bilaterally. GI: Abdomen is flat, non- distended Bowel sounds present X 4 quads. Abd is tender to palpation in right upper quadrant, left upper quadrant, right lower quadrant and left lower quadrant. 09:25 General: Appears reports little change with lorazepam. still very shaky. 9/10 diffuse jmk abdominal pain.. 09:40 General: Appears again medicated for nausea, shakiness and pain.. jmk 10:14 General: Appears resting with eyes closed resp easy and regular when not stimulated. " jmk I have not slept in days". 12:02 General: Appears IV bolus is completed. reports little change in symptoms. steel feel jmk shaky, but no tremors noted. diffuse ABD discomfort is unchanged from arrival. monitor is sr. awaiting admission. 13:10 General: Appears states pain to abdomen is 8/10 and is again feeling shaky. medicated jmk as per order. Monitor is remaining as sr. Overall presentation unchanged from arrival. admitted.. Vital Signs: 08:29 BP 135 / 74; Pulse 103; Resp 24; Temp 97.5(O); Pulse Ox 99% on R/A; Weight 117.93 kg kcs (R); Height 6 ft. 4 in. (193.04 cm) (R); Pain 9/10; 08:51 Pulse 112 MON; Pulse Ox 99% ; jmk 08:52 BP 134 / 66 (auto/); jmk 09:37 BP 108 / 52 (auto/); jmk 09:37 Pulse 106 MON; Pulse Ox 99% ; jmk 09:53 BP 114 / 56 (auto/); jmk 09:53 Pulse 96 MON; Pulse Ox 99% ; jmk 11:58 BP 103 / 49 (auto/); jmk 11:58 Pulse 90 MON; Pulse Ox 100% ; jmk 13:10 BP 156 / 93; Pulse 102; Resp 18; Temp 98.9; Pulse Ox 98% on R/A; jmk 08:29 Body Mass Index 31.65 (117.93 kg, 193.04 cm) [facility] Vitals: 08:29 Log In Time: October 02, 2016 at 08:14. [facility] ED Course: 08:17 Patient visited by Oscar Salinas. mm15 08:17 Patient moved to Waiting mm15 08:24 Shari Martini,RN is Primary Nurse. kcs 08:24 Patient moved to 17 [facility] 08:27 Triage Initiated kcs 08:32 Ulises Son MD is Attending Physician. 08:32 Patient visited by Ulises Son MD. ml 09:06 Troponin Sent. jmk 09:06 CIP Sent. jmk 09:06 Hepatitis Profile Sent. jmk 09:06 ERYTHROCYTE SEDIMENTATION RATE Sent. jmk 09:06 C REACTIVE PROTEIN QUANTITATIV Sent. jmk 09:06 Ammonia (Little Green Tube on Ice, Not Pea Green) Sent. jmk 09:06 -Blood Culture Sent. jmk 09:06 PTT Sent. jmk 09:06 PT/INR Sent. jmk 09:06 Lactic Acid (Rivera tube on ice) Sent. jmk 09:06 Amylase Sent. jmk 09:06 Lipase Sent. jmk 09:07 Liver Profile Sent. jmk 09:07 MED Profile Sent. jmk 09:07 CBC with Diff Sent. jmk 09:14 The patient / caregiver is instructed regarding the plan of care and ED course. Cardiac jmk monitor on. Pulse ox on. 09:14 Inserted saline lock: 20 gauge in left antecubital area. jmk 09:28 Chest, 1 View Returned. EDMS 09:40 Patient visited by Valentin Morel,ARIANNA. jmk 09:42 Notified attending ED physician of Critical lab value. Dr Rivera notified of Lactic Acid kpj of 5.7. 09:51 DIFFERENTIAL NO CHARGE Sent. jmk 10:15 Patient visited by Valentin Morel,ARIANNA. jmk 10:27 [facility] Payment Agreement was scanned into [employer] and attached to record. lg 10:29 Patient moved to Ultrasound br3 10:55 Acetaminophen Level Sent. rs6 10:56 Ethyl Alcohol (ethanol) Sent. rs6 10:56 Salicylate Level Sent. rs6 10:56 Thyroid Stimulating Hormone Sent. rs6 11:12 Patient moved to 17 br3 11:45 US Gallbladder Returned. EDMS 12:09 Patient visited by Lyla Silva PCA. ar3 12:14 CT ABD & PELVIS: IV Contrast Only Returned. EDMS 13:10 No procedures done that require assistance. jmk 10/03 08:04 EKG-ADULT Returned. EDMS 14:00 T-Sheet-- Draft Copy was scanned into [employer] and attached to record. gb 14:00 ECG/EKG was scanned into [employer] and attached to record. gb 14:01 Radiology Report was scanned into [employer] and attached to record. gb Administered Medications: 10/02 09:05 Drug: NS 0.9% 1000 ml Route: IV; Rate: 100 mL/hr; Site: left antecubital; k 09:06 Drug: LORazepam 1 mg [lorazepam 2 mg/mL injection solution (0.5 mL)] Route: IVP; Site: [facility] left antecubital; 09:25 Follow up: Response: No significant change. k 09:39 Drug: morphine 2 mg Route: IVP; Site: left antecubital; k 10:15 Follow up: Response: Pain is decreased k 09:39 Drug: LORazepam 1 mg [lorazepam 2 mg/mL injection solution (0.5 mL)] Route: IVP; Site: [facility] left antecubital; 09:40 Drug: Ondansetron 4 mg Route: IVP; Site: left antecubital; [facility] 13:10 Drug: LORazepam 1 mg [lorazepam 2 mg/mL injection solution (0.5 mL)] Route: IVP; Site: [facility] left antecubital; 13:10 Drug: morphine 2 mg Route: IVP; Site: left antecubital; [facility] Intake: 13:10 IV: 1000.00ml (NS); Total: 1000.00ml. [facility] Order Results: Lab Order: CBC with Diff; SPEC'M 10/02/16 08:52 Test: WHITE BLOOD COUNT; Value: 10.6; Range: 4.0-10.0; Abnormal: Above high normal; Units: K/mm3; Status: F Test: RED BLOOD COUNT; Value: 2.23; Range: 4.30-6.10; Abnormal: Below low normal; Units: M/mm3; Status: F Test: HEMOGLOBIN; Value: 9.0; Range: 14.0-18.0; Abnormal: Below low normal; Units: g/dl; Status: F Test: HEMATOCRIT; Value: 27.9; Range: 42.0-52.0; Abnormal: Below low normal; Units: %; Status: F Test: MEAN CORPUSCULAR VOLUME; Value: 125.4; Range: 80.0-96.0; Abnormal: Above high normal; Units: fl; Status: F Test: MEAN CORPUSCULAR HEMOGLOBIN; Value: 40.2; Range: 27.0-33.0; Abnormal: Above high normal; Units: pg; Status: F Test: MEAN CORPUSCULAR HGB CONC; Value: 32.1; Range: 32.0-36.5; Units: g/dl; Status: F Test: RED CELL DISTRIBUTION WIDTH; Value: 22.4; Range: 11.5-14.5; Abnormal: Above high normal; Units: %; Status: F Test: PLATELET COUNT, AUTOMATED; Value: 173; Range: 150-450; Units: k/mm3; Status: F Test: NEUTROPHILS; Value: 74; Range: 35-75; Units: %; Status: F Test: BANDS; Value: 1; Range: < 11; Units: %; Status: F Test: LYMPHOCYTES; Value: 7; Range: 16-52; Abnormal: Below low normal; Units: %; Status: F Test: MONOCYTES; Value: 13; Range: 0-8; Abnormal: Above high normal; Units: %; Status: F Test: BASOPHILS; Value: 1; Range: 0-4; Units: %; Status: F Test: METAMYELOCYTES; Value: 1; Range: 0-0; Abnormal: Above high normal; Units: %; Status: F Test: MYELOCYTES; Value: 2; Range: 0-0; Abnormal: Above high normal; Units: %; Status: F Test: ATYPICAL LYMPH; Value: 1; Range: 0-5; Units: %; Status: F Test: ANISOCYTOSIS; Value: 3+; Status: F Test: MACROCYTOSIS; Value: 3+; Status: F Test: TARGET CELLS; Value: 1+; Status: F Lab Order: [facility]; [facility]' 10/02/16 08:52 Test: GLUCOSE, FASTING; Value: 85; Range: 70-105; Units: MG/DL; Status: F Test: BLOOD UREA NITROGEN; Value: 13; Range: 7-18; Units: MG/DL; Status: F Test: CREATININE FOR GFR; Value: 0.91; Range: 0.70-1.30; Units: MG/DL; Status: F Test: GLOMERULAR FILTRATION RATE; Value: > 60.0; Range: >60; Status: F Test: SODIUM LEVEL; Value: 129; Range: 136-145; Abnormal: Below low normal; Units: MEQ/L; Status: F Test: POTASSIUM SERUM; Value: 4.2; Range: 3.5-5.1; Units: MEQ/L; Status: F Test: CHLORIDE LEVEL; Value: 92; Range: 98-107; Abnormal: Below low normal; Units: MEQ/L; Status: F Test: CARBON DIOXIDE LEVEL; Value: 21; Range: 21-32; Units: MEQ/L; Status: F Test: ANION GAP; Value: 16; Range: 8-16; Units: MEQ/L; Status: F Test: CALCIUM LEVEL; Value: 7.6; Range: 8.5-10.1; Abnormal: Below low normal; Units: MG/DL; Status: F Test Note: ; Units are mL/min/1.73 m2 Chronic Kidney Disease Staging per NKF: Stage I & II GFR >=60 Normal to Mildly Decreased Stage III GFR 30-59 Moderately Decreased Stage IV GFR 15-29 Severely Decreased Stage V GFR <15 Very Little GFR Left ESRD GFR <15 on PLATFORM ATTENDANT Lab Order: Liver Profile; SPEC'M 10/02/16 08:52 Test: AST/SGOT; Value: 564; Range: 15-37; Abnormal: Above high normal; Units: U/L; Status: F Test: ALT/SGPT; Value: 175; Range: 12-78; Abnormal: Above high normal; Units: U/L; Status: F Test: ALKALINE PHOSPHATASE; Value: 347; Range: 45-117; Abnormal: Above high normal; Units: U/L; Status: F Test: BILIRUBIN,TOTAL; Value: 24.6; Range: 0.2-1.0; Abnormal: Above upper panic limits; Units: MG/DL; Status: F Test: BILIRUBIN,DIRECT; Value: 19.4; Range: 0.0-0.2; Abnormal: Above high normal; Units: MG/DL; Status: F Test: TOTAL PROTEIN; Value: 5.5; Range: 6.4-8.2; Abnormal: Below low normal; Units: GM/DL; Status: F Test: ALBUMIN; Value: 1.9; Range: 3.2-5.2; Abnormal: Below low normal; Units: GM/DL; Status: F Test: ALBUMIN/GLOBULIN RATIO; Value: 0.53; Range: 1.00-1.93; Abnormal: Below low normal; Status: F Lab Order: Lipase; SPEC'10/02/16 08:52 Test: LIPASE; Value: 1275; Range: 73-393; Abnormal: Above high normal; Units: U/L; Status: F Lab Order: Amylase; [facility] 10/02/16 08:52 Test: AMYLASE; Value: 127; Range: 25-115; Abnormal: Above high normal; Units: U/L; Status: F Lab Order: Lactic Acid (Rivera tube on ice); [facility] 10/02/16 08:52 Test: LACTIC ACID SEPSIS PROTOCOL; Value: 5.7; Range: 0.4-2.0; Abnormal: Above upper panic limits; Units: MMOL/L; Status: F Lab Order: PT/INR; [facility] 10/02/16 08:52 Test: PROTHROMBIN TIME; Value: 24.1; Range: 12.3-14.5; Abnormal: Above high normal; Units: SECONDS; Status: F Test: INR; Value: 2.15; Status: F Test Note: ; THERAPUTIC HUMAN INR VALUES INDICATIONS NORMAL RANGES PROPHYLAXIS/TREATMENT OF: VENOUS THROMBOSIS 2.0-3.0 PULMONARY EMBOLISM 2.0-3.0 PREVENTION OF SYSTEMIC EMBOLISM FROM: TISSUE HEART VALVES 2.0-3.0 ACUTE MYOCARDIAL INFARCTION 2.0-3.0 VALVULAR HEART DISEASE 2.0-3.0 ATRIAL FIBRILLATION 2.0-3.0 MECHANICAL VALVES(HIGH RISK) 2.5-3.5 RECURRENT MYOCARDIAL INFARCTION 2.5-3.5 Lab Order: PTT; [facility] 10/02/16 08:52 Test: PARTIAL THROMBOPLASTIN TIME; Value: 42.0; Range: 26.6-37.1; Abnormal: Above high normal; Units: SECONDS; Status: F Lab Order: -Blood Culture; [facility] 10/02/16 08:52 Test: BLOOD CULTURE; Value: No growth after 24 hours . All specimens observed; Status: F Test: BLOOD CULTURE; Value: for 5 days. Results final at that time.; Status: F Test: BLOOD CULTURE; Value: No Growth after 48 hours. All Specimens observed; Status: F Test: BLOOD CULTURE; Value: for 7 days. Results final at that time.; Status: F Lab Order: Ammonia (Little [place] Tube on Ice, Not Pea Green); [facility] 10/02/16 08:52 Test: AMMONIA; Value: 39; Range: <32; Abnormal: Above high normal; Units: uMOL/L; Status: F Lab Order: CIP; 10/02/16 08:52 Test: CPK CREATINE PHOSPHOKINASE; Value: 99; Range: 39-308; Units: U/L; Status: F Test: CK-MB VALUE MASS; Value: 2.5; Range: 0.0-3.6; Units: NG/ML; Status: F Test: MB/CK RELATIVE INDEX; Value: 2.52; Range: < OR =4; Status: F Test Note: ; DIAGNOSIS CRITERIA MMB ng/ml Relative Index (RI) NON-AMI < or = 5 N/A RIVERA ZONE > 5 < or = 4 AMI > 5 > 4 Lab Order: Troponin; 10/02/16 08:52 Test: TROPONIN I; Value: < 0.02; Range: < 0.10; Units: NG/ML; Status: F Test Note: ; Troponin I Reference Interval for [employer] LOCI: 99th Percentile= 0.00-0.045 ng/ml Risk Stratification: <= 0.10 ng/ml Decreased Risk for Adverse Clinical Events. 0.10-1.50 ng/ml Increased Risk for Adverse Clinical Events. Evaluation of additional criterion and/or repeat testing in 2-6 hours is suggested to rule out myocardial damage. >= 1.50 ng/ml Indicative of Myocardial Injury. Lab Order: Type & Screen; 10/02/16 08:52 Test: BLOOD TYPE; Value: OP; Status: F Test: AB SCREEN GEL MANUAL; Value: NEGATIVE; Status: F Lab Order: Hepatitis Profile; 10/02/16 08:52 Test: HEPATITIS C VIRUS MATT INDEX; Value: 0.1; Range: <0.8; Units: INDEX; Status: F Test: HEPATITIS B SURFACE ANTIGEN; Value: NEGATIVE; Range: NEGATIVE; Status: F Test: HEPATITIS B CORE ANTIBODY IGM; Value: NEGATIVE; Range: NEGATIVE; Status: F Test: HEPATITIS A ANTIBODY IGM; Value: NEGATIVE; Range: NEGATIVE; Status: F Test Note: ; Negative Not infected with HCV, unless recent infection is suspected or other evidence exists to indicate HCV infection. Lab Order: ERYTHROCYTE SEDIMENTATION RATE; [facility] 08:52 Test: ERYTHROCYTE SEDIMENTATION RATE; Value: 52; Range: 0-15; Abnormal: Above high normal; Units: mm/hr; Status: F Lab Order: C REACTIVE PROTEIN QUANTITATIV; 10/02/16 08:52 Test: C REACTIVE PROTEIN QUANTITATIV; Value: 3.51; Range: 0.00-0.30; Abnormal: Above high normal; Units: MG/DL; Status: F Lab Order: BLOOD CULTURES; 10/02/16 09:26 Test: BLOOD CULTURE; Value: No growth after 24 hours . All specimens observed; Status: F Test: BLOOD CULTURE; Value: for 5 days. Results final at that time.; Status: F Test: BLOOD CULTURE; Value: No Growth after 48 hours. All Specimens observed; Status: F Test: BLOOD CULTURE; Value: for 7 days. Results final at that time.; Status: F Lab Order: PLATELET ESTIMATE; 10/02/16 08:52 Test: PLATELET ESTIMATE; Value: NORMAL; Range: NORMAL; Status: F Lab Order: Acetaminophen Level; 10/02/16 08:52 Test: ACETAMINOPHEN LEVEL; Value: < 2.0; Range: 10.0-30.0; Abnormal: Below low normal; Units: UG/ML; Status: F Lab Order: Ethyl Alcohol (ethanol); 10/02/16 08:52 Test: ETHYL ALCOHOL (ETHANOL); Value: 0.003; Range: 0.000-0.010; Units: %; Status: F Lab Order: Salicylate Level; 10/02/16 08:52 Test: SALICYLATE LEVEL; Value: < 1.7; Range: 5.0-30.0; Abnormal: Below low normal; Units: MG/DL; Status: F Lab Order: Thyroid Stimulating Hormone; 10/02/16 08:52 Test: THYROID STIMULATING HORMONE; Value: 1.980; Range: 0.358-3.740; Units: uIU/ML; Status: F Radiology Order: EKG-ADULT Test: EKG-ADULT REASON FOR EXAMINATION: Chest Pain; Stationary ECG Study; [facility] - ED; ; Test Date: 2016-10-02; Pat Name: SHERRIE CLEARY Department:; Room: -; Gender: M Machine Crater: junie; : 1970 Requested By: Ulises Son; Order Number: [id number] Reading MD: Mariana Coombs; Measurements; Intervals [place]; Rate: 101 P: 196; ME: 257 QRS: -24; QRSD: 116 T: 37; QT: 369; QTc: 479; Interpretive Statements; SINUS TACHYCARDIA WITH FIRST DEGREE AV BLOCK; POSSIBLE LEFT ATRIAL ENLARGEMENT; PROBABLE LATERAL MYOCARDIAL INFARCTION, PROBABLY OLD; PRWP; IVCD; BASELINE ARTIFACT LIMITS INTEPRETATION; INCREASED RATE 03/25/16; Electronically Signed On 10-03-2016 7:45:33 EST by Mariana Coombs; Radiology Order: Chest, 1 View Test: Chest, 1 View REASON FOR EXAMINATION: Chest Pain; Clinical: Chest pain .; ; Comparison: 03/25/2016 .; ; Findings:; The mediastinum and cardiac silhouette are stable and within normal limits for; portable technique. The lung correa are clear without acute consolidation,; effusion, or pneumothorax. Skeletal structures are intact.; ; Impression:; Normal portable chest x-ray; ; ; Signed by; Keagan Campo MD 10/02/2016 08:57 A; Radiology Order: CT ABD & PELVIS: IV Contrast Only Test: CT ABD & PELVIS: IV Contrast Only REASON FOR EXAMINATION: abdl pain; Clinical: Abdominal pain with jaundice.; ; Technique: Axial contrast enhanced images from the lung bases to the pubic; symphysis using 100 ml Isovue 370 intravenous contrast material with coronal and; sagittal re-formations.; ; Comparison: 03/25/2016, 02/28/2016.; ; Findings:; The liver is diffusely heterogeneous and demonstrates decreased parenchymal; attenuation consistent with fatty infiltration and/or hepatocellular disease. No; focal hepatic lesion is identified. A moderate amount of ascites noted; throughout the abdomen and pelvis is appreciated along with what appears to be; increased predominate upper abdominal vasculature suggesting underlying cirrhosis; with varices and portosystemic shunting. The spleen is unremarkable. The; enteric system demonstrates prior gastric bypass and left lower quadrant small; bowel anastomosis. A mild colitis cannot be excluded and may be secondary to; surrounding ascites as well as secondary to cirrhosis. There is no evidence for; bowel obstruction and no free air to suggest perforation. The gallbladder is; mildly distended. The pancreas is unremarkable. The bilateral adrenal glands; and kidneys are relatively normal - 2 cm lower pole right renal cyst is; unchanged. 2.5 cm fat containing periumbilical hernia is unchanged. Pelvis; demonstrates normal bladder and prostate/seminal vesicles. No obvious; adenopathy. Abdominal aorta without aneurysm. Surrounding musculoskeletal; structures demonstrate age-related changes. Lung bases are clear.; ; Impression:; 1. Findings suggest fatty infiltration to the liver and/or hepatocellular; disease including findings as described above which may reflect underlying; cirrhosis.; 2. Moderate ascites.; 3. Mild colitis may be secondary to surrounding ascites and cirrhosis.; 4. Chronic stable changes including 2 cm right renal cyst and 2.5 cm fat; containing periumbilical hernia.; ; ; Signed by; Keagan Campo MD 10/02/2016 11:48 A; Radiology Order: US Gallbladder Test: US Gallbladder REASON FOR EXAMINATION: elev bili, jaundice; Clinical: Jaundice and elevated bilirubin levels.; ; Technique: Real time rivera scale evaluation using curved array transducer.; ; Findings:; The liver is increased echogenicity with poor through transmission suggesting; fatty infiltration and hepatocellular disease without focal hepatic lesion; identified. The biliary system and pancreas are incompletely evaluated due to; technical factors and poor through transmission. The gallbladder appears; distended with layering sludge/gravel. Mild right upper quadrant and; pericholecystic fluid is appreciated and nonspecific. No sonographic Waddell's; sign was elicited. The right kidney is normal in reniform shape measuring 12.2 x; 6.4 x 5.9 cm without hydronephrosis and includes 2.2 cm simple lower pole; cortical cyst.; ; Impression:; Fatty infiltration to the liver without focal hepatic lesion identified.; Distended gallbladder along with layering sludge/gravel as well as mild ascites; and pericholecystic fluid. Biliary system is incompletely evaluated and the; common bile duct is poorly identified due to technical factors and poor through; transmission from fatty infiltration of the liver.; ; ; ; ; Signed by; Keagan Campo MD 10/02/2016 11:24 A; Outcome: 12:31 ER care complete, transfer ordered by Provider. ml 13:10 Discharge Assessment: Patient awake, alert and oriented x 3. No cognitive and/or jmk functional deficits noted. Patient verbalized understanding of disposition instructions. patient administered narcotics - yes. Patient was admitted to the hospital or transferred to another facility. The following High Risk Discharge criteria are identified: Yes, Transferred by EMS ground [facility] ambulance farideh wilson, paramedics. Condition: unchanged. CT Study completed. Ultrasound Study completed. Admission hand-off: Report called to arianna mcwilliams. Property :Personal belongings accompany Pt. 13:15 Patient left the ED. jose Signatures: Dispatcher [employer] EDMS Ulises Son MD MD ml Sleeman, Kacey, RN RN Sarai Kapadia RN RN Valentin Andrews,RN RN madeline Arita, Jael, Reg Reg gb Dusty Martinez, Reg Reg lg Tina Merino br3 Lyla Silva, COMMUNITY SERVICE AIDE COMMUNITY SERVICE AIDE ar3 Oscar Salinas mm15 Jojo Wynn, COMMUNITY SERVICE AIDE COMMUNITY SERVICE AIDE rs6 Corrections: (The following items were deleted from the chart) 08:33 08:25 Presenting complaint: Patient states: he has had abdominal pain for a few days - kcs also bloody stools - short of breath and pain in upper chest (both started this am). kcs 09:27 09:14 General: Appears in no apparent distress, appears generally ill. skin and sclera jmk are both yell. without resp distress. chest CTA. occasional non congested cough noted. abd soft and non distended but with slight firmness to upper abdomen. Bowel sounds present x 4. diffusely tender with palpation. monitor is sr without ectopy. slightly tremulous. Indicates ETOH on daily basis, with last ingestion was last night.. jose 09:44 09:06 TYPE & SCREEN+BBK sent. [facility] EDMS Chart Complete MTDD
== END 2016-10-02 13:15 | disposition short-term general hospital (02) ==
LOC: M ED 08:14
DX: K70.40 Alcoholic hepatic failure without coma (principal); K85.90 Acute pancreatitis without necrosis or infection, unspecified; D64.9 Anemia, unspecified; G89.29 Other chronic pain; F10.10 Alcohol abuse, uncomplicated; F11.10 Opioid abuse, uncomplicated; Z98.84 Bariatric surgery status; Z79.899 Other long term (current) drug therapy; Z88.2 Allergy status to sulfonamides; Z88.8 Allergy status to other drugs, medicaments and biological substances; F17.210 Nicotine dependence, cigarettes, uncomplicated
CPT/HCPCS: 71010; 74177; 76705; 80048; 80076; 82140; 82150; 82550; 82553; 83605; 83690; 84443; 85025; 85610; 85652; 85730; 86140; 86705; 86709; 86803; 86850; 87040; 87340; 93005; 96374; 96375; 96376; 99291; 99292; G0480; J2060; J2405; Q9967

== ENCOUNTER 2016-10-26 15:46 | Emergency (ER) | payer OTHER ==
[~2016-10-26] VITALS: Ht 193 cm; Wt 117.9 kg
[~2016-10-26 15:46] MED LIST changes: +[UNRECOGNIZED DRUG - REMARK]
[2016-10-26] MEDS ORDERED: LACT10SO29 PO (16:26)
[2016-10-26] MEDS ORDERED: BUSP10TA PO (16:26)
[2016-10-26] MEDS ORDERED: PROT1TAB2 PO (16:26)
[2016-10-26] MEDS ORDERED: CYCL5TA PO (16:26)
[2016-10-26] MEDS ORDERED: BENA25CA4 PO (16:26)
[2016-10-26] MEDS ORDERED: ROXI1TAB2 PO (16:26)
[2016-10-26] MEDS ORDERED: LEXA1TAB2 PO (16:26)
[2016-10-26] MEDS ORDERED: VITA50003 PO (16:26)
[2016-10-26] MEDS ORDERED: MAGN400T PO (16:26)
[2016-10-26] MEDS ORDERED: TUMS500C PO (16:26)
[2016-10-26] MEDS ORDERED: MULT1TAB10 PO (16:26)
[2016-10-26] MEDS ORDERED: NADO20TA PO (16:26)
[2016-10-26] MEDS ORDERED: LASI20TA PO (16:26)
[2016-10-26] MEDS ORDERED: THIA50CA PO (16:26)
[2016-10-26] MEDS ORDERED: PANCCAP4 PO (16:26)
[2016-10-26] MEDS ORDERED: NS 1,000 ML IV ONE (17:45)
[2016-10-26 18:12] LABS: ALBUMIN/GLOBULIN RATIO 0.56 (1.00-1.93); ALKALINE PHOSPHATASE 150 U/L (45-117); ALT/SGPT 61 U/L (12-78); AMYLASE 64 U/L (25-115); ANION GAP 6 MEQ/L (8-16); AST/SGOT 125 U/L (15-37); BILIRUBIN,DIRECT 3.4 MG/DL (0.0-0.2); BILIRUBIN,TOTAL 4.2 MG/DL (0.2-1.0); BLOOD UREA NITROGEN 7 MG/DL (7-18); CALCIUM LEVEL 7.4 MG/DL (8.5-10.1); CARBON DIOXIDE LEVEL 30 MEQ/L (21-32); CHLORIDE LEVEL 105 MEQ/L (98-107); GLOMERULAR FILTRATION RATE > 60.0 (>60); GLUCOSE, FASTING 95 MG/DL (70-105); SODIUM LEVEL 141 MEQ/L (136-145); TOTAL PROTEIN 5.6 GM/DL (6.4-8.2)
[2016-10-26 18:15] LABS: INR 1.51
[2016-10-26 18:34] LABS: BASO % 0.4 % (0.0-1.0); EOS # 0.3 K/mm3 (0.0-0.50); EOS % 3.7 % (0.0-3.0); LARGE UNSTAINED CELL # 0.2 K/mm3 (0.0-0.4); LARGE UNSTAINED CELL % 2.6 % (0.0-4.0); LYMPH # 1.2 K/mm3 (1.5-4.5); LYMPH % 17.3 % (24.0-44.0); MEAN CORPUSCULAR HEMOGLOBIN 33.2 pg (27.0-33.0); MEAN CORPUSCULAR HGB CONC 31.6 g/dl (32.0-36.5); MONO # 0.6 K/mm3 (0.0-0.8); MONO % 7.8 % (0.0-5.0); NEUTROPHILS # 4.8 K/mm3 (1.8-7.7); NEUTROPHILS % 68.2 % (36.0-66.0); PLATELET COUNT, AUTOMATED 241 k/mm3 (150-450); RED CELL DISTRIBUTION WIDTH 17.9 % (11.5-14.5); WHITE BLOOD COUNT 7.1 K/mm3 (4.0-10.0)
[2016-10-26] MEDS ORDERED: MORPHINE 4 MG/ML 1ML SYRINGE IV ONE ×2 (18:45→19:45)
--- NOTE | 2016-10-26 19:28 | REP ---
AP PORTABLE CHEST: 10/26/2016: Clinical history: GI bleed. Comparison: 10/02/2016, 03/25/2016, 12/13/2015 chest x-rays. Findings: There is elevation of the right diaphragm and volume loss with low level of inflation for both lung correa. Linear atelectatic change greater about the right diaphragm than left. No gross effusion on the portable chest. No dense consolidation with the diaphragm well defined. Heart size exaggerated by level of inflation and portable technique. No pulmonary edema. The aorta intact. Airway intact. Bones without gross acute finding. No free air under the diaphragm. Impression: 1. Elevated right diaphragm with hypoinflation bilaterally and more atelectatic change around that right diaphragm than left. No effusion, dense consolidation or mass. 2. Left ventricular configuration of the heart exaggerated by low level of inflation. No edema or effusion. Signed by Wellington Collier MD 10/26/2016 07:52 P
--- NOTE | 2016-10-26 20:46 | ECGEPIP ---
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
[2016-10-26] MEDS ORDERED: fentaNYL 100 MCG/2 ML INJECTION (J3010) IV ONE (21:30)
[2016-10-26 21:33] VITALS: BP 116/71
== END 2016-10-26 21:42 | disposition short-term general hospital (02) ==
LOC: EDBD 15:46 → M ED 19:01
DX: K92.2 Gastrointestinal hemorrhage, unspecified (principal); K72.90 Hepatic failure, unspecified without coma; F10.10 Alcohol abuse, uncomplicated; Z88.6 Allergy status to analgesic agent; Z88.2 Allergy status to sulfonamides; Z79.899 Other long term (current) drug therapy; Z87.891 Personal history of nicotine dependence; R51 Headache; I83.90 Asymptomatic varicose veins of unspecified lower extremity; K64.9 Unspecified hemorrhoids; Z98.84 Bariatric surgery status; M19.90 Unspecified osteoarthritis, unspecified site; F41.9 Anxiety disorder, unspecified; F32.9 Major depressive disorder, single episode, unspecified; F11.10 Opioid abuse, uncomplicated
CPT/HCPCS: 36415; 71010; 80048; 80076; 81001; 82150; 82550; 82553; 83605; 83690; 85025; 85610; 85730; 86850; 86900; 86901; 87040; 87086; 93005; 93041; 96361; 96374; 96375; 96376; 99285; J3010

== ENCOUNTER → 2016-10-31 | Outpatient (REF) ==
[~2016-10-31] MED LIST changes: +BENA25CA4 PO; +CYCL5TA PO; +LACT10SO29 PO; +MULT1TAB10 PO; +NADO20TA PO; +PROT1TAB2 PO; +ROXI1TAB2 PO; +THIA50CA PO; +TUMS500C PO; +VITA50003 PO
== END ==
PROVIDERS: ATTEND Internal Medicine
DX: Z00.00 Encounter for general adult medical examination without abnormal findings (principal)

== ENCOUNTER → 2016-11-01 | Outpatient (REF) ==
[2016-11-01 12:54] LABS: MEAN CORPUSCULAR HEMOGLOBIN 32.5 pg (27.0-33.0); MEAN CORPUSCULAR HGB CONC 31.1 g/dl (32.0-36.5); MEAN CORPUSCULAR VOLUME 104.3 fl (80.0-96.0); RED CELL DISTRIBUTION WIDTH 17.2 % (11.5-14.5); WHITE BLOOD COUNT 6.4 K/mm3 (4.0-10.0)
[2016-11-01 13:14] LABS: ALBUMIN 1.8 GM/DL (3.2-5.2); ALBUMIN/GLOBULIN RATIO 0.58 (1.00-1.93); ALKALINE PHOSPHATASE 129 U/L (45-117); ALT/SGPT 36 U/L (12-78); ANION GAP 7 MEQ/L (8-16); AST/SGOT 75 U/L (15-37); BILIRUBIN,DIRECT 2.5 MG/DL (0.0-0.2); BLOOD UREA NITROGEN 5 MG/DL (7-18); CALCIUM LEVEL 7.3 MG/DL (8.5-10.1); CARBON DIOXIDE LEVEL 27 MEQ/L (21-32); CHLORIDE LEVEL 107 MEQ/L (98-107); CREATININE FOR GFR 0.76 MG/DL (0.70-1.30); GLOMERULAR FILTRATION RATE > 60.0 (>60); GLUCOSE, FASTING 102 MG/DL (70-105); POTASSIUM SERUM 3.8 MEQ/L (3.5-5.1); SODIUM LEVEL 141 MEQ/L (136-145); TOTAL PROTEIN 4.9 GM/DL (6.4-8.2)
== END ==
PROVIDERS: ATTEND Internal Medicine
DX: D64.9 Anemia, unspecified (principal)

== ENCOUNTER → 2016-11-02 | Outpatient (REF) ==
[2016-11-02 10:12] LABS: MEAN CORPUSCULAR HEMOGLOBIN 32.2 pg (27.0-33.0); MEAN CORPUSCULAR HGB CONC 31.1 g/dl (32.0-36.5); MEAN CORPUSCULAR VOLUME 103.5 fl (80.0-96.0)
== END ==
PROVIDERS: ATTEND Internal Medicine
DX: D64.9 Anemia, unspecified (principal)

== ENCOUNTER → 2016-11-03 | Outpatient (REF) ==
[2016-11-03 10:47] LABS: MEAN CORPUSCULAR HEMOGLOBIN 32.4 pg (27.0-33.0); MEAN CORPUSCULAR HGB CONC 30.8 g/dl (32.0-36.5); MEAN CORPUSCULAR VOLUME 105.2 fl (80.0-96.0); RED CELL DISTRIBUTION WIDTH 16.8 % (11.5-14.5); WHITE BLOOD COUNT 7.8 K/mm3 (4.0-10.0)
[2016-11-03 11:09] LABS: ANION GAP 10 MEQ/L (8-16); BLOOD UREA NITROGEN 5 MG/DL (7-18); CALCIUM LEVEL 7.5 MG/DL (8.5-10.1); CARBON DIOXIDE LEVEL 26 MEQ/L (21-32); CHLORIDE LEVEL 105 MEQ/L (98-107); CREATININE FOR GFR 0.75 MG/DL (0.70-1.30); GLOMERULAR FILTRATION RATE > 60.0 (>60); GLUCOSE, FASTING 74 MG/DL (70-105); POTASSIUM SERUM 3.7 MEQ/L (3.5-5.1); SODIUM LEVEL 141 MEQ/L (136-145)
== END ==
PROVIDERS: ATTEND Internal Medicine
DX: D64.9 Anemia, unspecified (principal)

== ENCOUNTER → 2016-11-06 | Outpatient (REF) ==
[2016-11-06 09:06] LABS: ALBUMIN/GLOBULIN RATIO 0.49 (1.00-1.93); ALKALINE PHOSPHATASE 143 U/L (45-117); ALT/SGPT 31 U/L (12-78); AST/SGOT 58 U/L (15-37); BILIRUBIN,DIRECT 2.7 MG/DL (0.0-0.2); BILIRUBIN,TOTAL 3.2 MG/DL (0.2-1.0); TOTAL PROTEIN 6.1 GM/DL (6.4-8.2)
[2016-11-06 15:19] LABS: ANION GAP 10 MEQ/L (8-16); BLOOD UREA NITROGEN 6 MG/DL (7-18); CALCIUM LEVEL 8.2 MG/DL (8.5-10.1); CARBON DIOXIDE LEVEL 23 MEQ/L (21-32); CHLORIDE LEVEL 107 MEQ/L (98-107); CREATININE FOR GFR 0.83 MG/DL (0.70-1.30); GLOMERULAR FILTRATION RATE > 60.0 (>60); GLUCOSE, FASTING 95 MG/DL (70-105); SODIUM LEVEL 140 MEQ/L (136-145)
== END ==
PROVIDERS: ATTEND Internal Medicine
DX: Z00.00 Encounter for general adult medical examination without abnormal findings (principal)

== ENCOUNTER → 2016-11-07 | Outpatient (REF) ==
[2016-11-07 09:30] LABS: MEAN CORPUSCULAR HEMOGLOBIN 32.6 pg (27.0-33.0); MEAN CORPUSCULAR HGB CONC 31.5 g/dl (32.0-36.5); MEAN CORPUSCULAR VOLUME 103.3 fl (80.0-96.0); RED CELL DISTRIBUTION WIDTH 16.3 % (11.5-14.5); WHITE BLOOD COUNT 6.1 K/mm3 (4.0-10.0)
== END ==
PROVIDERS: ATTEND Internal Medicine
DX: D64.9 Anemia, unspecified (principal)

== ENCOUNTER → 2016-11-10 | Outpatient (REF) ==
[2016-11-10 13:47] LABS: MEAN CORPUSCULAR HGB CONC 30.9 g/dl (32.0-36.5); MEAN CORPUSCULAR VOLUME 103.3 fl (80.0-96.0); RED CELL DISTRIBUTION WIDTH 16.1 % (11.5-14.5); WHITE BLOOD COUNT 7.1 K/mm3 (4.0-10.0)
[2016-11-10 14:05] LABS: ANION GAP 8 MEQ/L (8-16); BLOOD UREA NITROGEN 7 MG/DL (7-18); CARBON DIOXIDE LEVEL 23 MEQ/L (21-32); CHLORIDE LEVEL 107 MEQ/L (98-107); CREATININE FOR GFR 0.78 MG/DL (0.70-1.30); GLOMERULAR FILTRATION RATE > 60.0 (>60); GLUCOSE, FASTING 127 MG/DL (70-105); POTASSIUM SERUM 4.1 MEQ/L (3.5-5.1); SODIUM LEVEL 138 MEQ/L (136-145)
== END ==
PROVIDERS: ATTEND Internal Medicine
DX: D64.9 Anemia, unspecified (principal)

== ENCOUNTER → 2016-11-13 | Outpatient (REF) ==
[2016-11-13 10:49] LABS: ANION GAP 10 MEQ/L (8-16); BLOOD UREA NITROGEN 7 MG/DL (7-18); CALCIUM LEVEL 8.3 MG/DL (8.5-10.1); CARBON DIOXIDE LEVEL 22 MEQ/L (21-32); CHLORIDE LEVEL 110 MEQ/L (98-107); CREATININE FOR GFR 0.77 MG/DL (0.70-1.30); GLOMERULAR FILTRATION RATE > 60.0 (>60); GLUCOSE, FASTING 158 MG/DL (70-105); POTASSIUM SERUM 4.2 MEQ/L (3.5-5.1); SODIUM LEVEL 142 MEQ/L (136-145)
[2016-11-13 10:56] LABS: MEAN CORPUSCULAR HEMOGLOBIN 31.5 pg (27.0-33.0); MEAN CORPUSCULAR HGB CONC 29.6 g/dl (32.0-36.5); MEAN CORPUSCULAR VOLUME 106.3 fl (80.0-96.0); RED CELL DISTRIBUTION WIDTH 15.5 % (11.5-14.5)
== END ==
PROVIDERS: ATTEND Internal Medicine
DX: Z00.00 Encounter for general adult medical examination without abnormal findings (principal)

== ENCOUNTER → 2016-11-16 | Outpatient (REF) | payer OTHER ==
[2016-11-16 19:11] LABS: PERCENT SATURATION 41.5 % (19.7-37.4)
== END ==
LOC: M LAB REF 16:56
PROVIDERS: ATTEND Internal Medicine
DX: D64.9 Anemia, unspecified (principal); K86.0 Alcohol-induced chronic pancreatitis

== ENCOUNTER → 2016-11-24 | Outpatient (REF) | payer OTHER ==
[2016-11-24 18:16] LABS: INR 1.26
== END ==
LOC: M LAB REF 16:46
PROVIDERS: ATTEND Internal Medicine
DX: K70.31 Alcoholic cirrhosis of liver with ascites (principal); D68.4 Acquired coagulation factor deficiency

== ENCOUNTER 2016-12-28 18:35 | Emergency (ER) | payer MEDICAID, OTHER ==
[~2016-12-28] VITALS: Ht 193 cm; Wt 113.4 kg
[2016-12-28 19:57] LABS: ALBUMIN 2.5 GM/DL (3.2-5.2); ALBUMIN/GLOBULIN RATIO 0.57 (1.00-1.93); ALKALINE PHOSPHATASE 312 U/L (45-117); ALT/SGPT 91 U/L (12-78); ANION GAP 14 MEQ/L (8-16); AST/SGOT 472 U/L (15-37); BILIRUBIN,DIRECT 4.3 MG/DL (0.0-0.2); BILIRUBIN,TOTAL 6.1 MG/DL (0.2-1.0); BLOOD UREA NITROGEN 6 MG/DL (7-18); CALCIUM LEVEL 7.1 MG/DL (8.5-10.1); CARBON DIOXIDE LEVEL 24 MEQ/L (21-32); CHLORIDE LEVEL 97 MEQ/L (98-107); CREATININE FOR GFR 0.71 MG/DL (0.70-1.30); GLOMERULAR FILTRATION RATE > 60.0 (>60); GLUCOSE, FASTING 138 MG/DL (70-105); POTASSIUM SERUM 3.3 MEQ/L (3.5-5.1); SODIUM LEVEL 135 MEQ/L (136-145); TOTAL PROTEIN 6.9 GM/DL (6.4-8.2)
[2016-12-28 20:11] LABS: MEAN CORPUSCULAR HEMOGLOBIN 33.6 pg (27.0-33.0); MEAN CORPUSCULAR VOLUME 101.7 fl (80.0-96.0); RED CELL DISTRIBUTION WIDTH 18.7 % (11.5-14.5); WHITE BLOOD COUNT 6.2 K/mm3 (4.0-10.0)
[2016-12-28 20:46] LABS: METHADONE URINE NEGATIVE (NEGATIVE)
[2016-12-28] MEDS ORDERED: ONDANSETRON 4 MG ORAL DISINTEGRATING TAB (S0181) PO ONE (21:30)
[2016-12-28 23:19] VITALS: BP 123/84
== END 2016-12-28 23:30 | disposition home or self-care (01) ==
LOC: M ED 20:09
DX: F10.229 Alcohol dependence with intoxication, unspecified (principal); K21.9 Gastro-esophageal reflux disease without esophagitis; F32.9 Major depressive disorder, single episode, unspecified; F17.200 Nicotine dependence, unspecified, uncomplicated; Z79.899 Other long term (current) drug therapy; Z88.6 Allergy status to analgesic agent; Z88.2 Allergy status to sulfonamides
CPT/HCPCS: 80048; 80076; 80306; 84443; 85027; 99282; G0480

== ENCOUNTER 2016-12-30 20:24 | Emergency (ER) | payer OTHER ==
[~2016-12-30] VITALS: Ht 193 cm; Wt 117.9 kg
[2016-12-30] MEDS ORDERED: LORazepam 2 MG/ML VIAL (J2060) IV STA (20:37)
[2016-12-30] MEDS ORDERED: FAMOTIDINE 20 MG TAB PO ONE (20:45)
[2016-12-30] MEDS ORDERED: ONDANSETRON 4MG/2ML VIAL (J2405) IV ONE (20:45)
[2016-12-30] MEDS ORDERED: NS 1,000 ML IV ONE (20:45)
[2016-12-30] MEDS ORDERED: FAMOTIDINE IV BAG 20 MG in APPROPRIATE DILUENT 1 EA IV ONE (21:00)
[2016-12-30 21:26] LABS: INR 1.54
[2016-12-30 21:29] LABS: BASO % 0.2 % (0.0-1.0); EOS % 0.4 % (0.0-3.0); LARGE UNSTAINED CELL # 0.1 K/mm3 (0.0-0.4); LARGE UNSTAINED CELL % 1.4 % (0.0-4.0); LYMPH # 0.6 K/mm3 (1.5-4.5); MEAN CORPUSCULAR HEMOGLOBIN 33.8 pg (27.0-33.0); MEAN CORPUSCULAR HGB CONC 33.2 g/dl (32.0-36.5); MEAN CORPUSCULAR VOLUME 101.8 fl (80.0-96.0); MONO # 0.3 K/mm3 (0.0-0.8); MONO % 6.3 % (0.0-5.0); NEUTROPHILS # 4.2 K/mm3 (1.8-7.7); NEUTROPHILS % 79.7 % (36.0-66.0); RED CELL DISTRIBUTION WIDTH 19.2 % (11.5-14.5); WHITE BLOOD COUNT 5.3 K/mm3 (4.0-10.0)
[2016-12-30 21:32] LABS: PLATELET COUNT, AUTOMATED 36 k/mm3 (150-450)
[2016-12-30 21:38] LABS: ALBUMIN 2.5 GM/DL (3.2-5.2); ALBUMIN/GLOBULIN RATIO 0.56 (1.00-1.93); ALKALINE PHOSPHATASE 290 U/L (45-117); ALT/SGPT 100 U/L (12-78); AMYLASE 66 U/L (25-115); ANION GAP 16 MEQ/L (8-16); AST/SGOT 555 U/L (15-37); BILIRUBIN,DIRECT 5.9 MG/DL (0.0-0.2); BLOOD UREA NITROGEN 9 MG/DL (7-18); CALCIUM LEVEL 7.2 MG/DL (8.5-10.1); CARBON DIOXIDE LEVEL 23 MEQ/L (21-32); CHLORIDE LEVEL 97 MEQ/L (98-107); GLOMERULAR FILTRATION RATE > 60.0 (>60); GLUCOSE, FASTING 77 MG/DL (70-105); SODIUM LEVEL 136 MEQ/L (136-145)
[2016-12-30] MEDS ORDERED: OXAZ30CA2 PO (22:33)
[2016-12-30] MEDS ORDERED: ZOFR4TAB3 PO (22:33)
[2016-12-30 22:47] VITALS: BP 118/74
--- NOTE | 2016-12-31 14:45 | REP ---
ABDOMINAL SERIES: Cross table lateral and supine films of the abdomen and pelvis demonstrate no free air and no compelling evidence for obstruction. I do not see significantly dilated small bowel loops. Phleboliths and a metallic clip are seen in the pelvis. An accompanying view of the chest demonstrates no acute infiltrate. IMPRESSION: No evidence of free air or obstruction. No infiltrate in either lung. Signed by Jerome Rivera MD 12/31/2016 07:58 P
--- NOTE | 2017-01-01 20:44 | ECGEPIP ---
Stationary ECG Study [facility] - ED Test Date: 2016-12-30 Pat Name: SHERRIE PEREZ Department: Room: - Gender: M Team Coordinator: tricia : 1970 Requested By: MARTHA WINTERS Order Number: [id number] Reading MD: Ulises Son Measurements Intervals [place] Rate: 105 P: 158 [place]: 194 QRS: -27 QRSD: 107 T: 17 QT: 377 QTc: 500 Interpretive Statements SINUS TACHYCARDIA LAD POSSIBLE ANTERIOR MYOCARDIAL INFARCTION, PROBABLY OLD ABNORMAL RHYTHM ECG INTERPRETATION BASED ON A DEFAULT AGE OF 40 YEARS BORDERLINE PROLONGED QTC IVCD CW 10/26/16 RATE INCREASED Electronically Signed On 01-01-2017 20:44:08 EDT by Ulises Son
== END 2016-12-31 00:13 | disposition home or self-care (01) ==
LOC: EDBD 20:24 → M ED 21:34
DX: K70.10 Alcoholic hepatitis without ascites (principal); K86.1 Other chronic pancreatitis; F10.20 Alcohol dependence, uncomplicated; K21.9 Gastro-esophageal reflux disease without esophagitis; Z98.84 Bariatric surgery status; R94.31 Abnormal electrocardiogram [ECG] [EKG]; Z79.899 Other long term (current) drug therapy; Z88.6 Allergy status to analgesic agent; Z88.2 Allergy status to sulfonamides
CPT/HCPCS: 74022; 80048; 80076; 82150; 82550; 82553; 83690; 85025; 85610; 93005; 96365; 96375; 99284; G0480; J2060; J2405